=== PATIENT | female | born 1985 | race Hispanic/Latino ===

== ENCOUNTER 2021-02-11 02:10 | Inpatient (IN) | payer OTHER ==
[2021-02-11] MEDS ORDERED: NALOXONE 0.4 MG/1 ML INJ IV PRN (02:19)
[2021-02-11] MEDS ORDERED: LACTATED RINGERS 1,000 ML IV ONE ×3 (02:20→05:35)
--- NOTE | 2021-02-11 02:24 | Emergency Department Report ---
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 Metamyelocytes # K/mm3 Myelocytes # K/mm3 Promyelocytes # K/mm3 Blast Cells # K/mm3 WBC Morphology Hypersegmented Neuts Hyposegmented Neuts Hypogranular Neuts Smudge Cells Toxic Granulation Toxic Vacuolation Dohle Bodies Pelger-Huet Anomaly Can Rods Platelet Estimate Clumped Platelets Plt Clumps, EDTA Large Platelets Giant Platelets Platelet Satelliting Plt Morphology Comment RBC Morphology Dimorphic RBCs Polychromasia Hypochromasia Poikilocytosis Anisocytosis Microcytosis Macrocytosis Spherocytes Pappenheimer Bodies Sickle Cells Target Cells Tear Drop Cells Ovalocytes Helmet Cells Gu[place] Bodies [place] Rings Gely Cells Bite Cells Crenated Cell Elliptocytes Acanthocytes (Spur) Rouleaux Hemoglobin C Crystals Schistocytes Malaria parasites Sacha Bodies Hem Pathologist Commnt APTT (24.2-36.6) Sec. Sodium (137-145) mmol/L Potassium (3.6-5.0) mmol/L Chloride (98-107) mmol/L Carbon Dioxide (22-30) mmol/L Anion Gap mmol/L BUN (7-17) mg/dL Creatinine (0.6-1.2) mg/dL Estimated GFR ml/min BUN/Creatinine Ratio % Glucose (65-100) mg/dL Lactic Acid (0.7-2.0) mmol/L Calcium (8.4-10.2) mg/dL Magnesium (1.7-2.3) mg/dL Total Bilirubin (0.1-1.2) mg/dL AST (5-40) units/L ALT (7-56) units/L Alkaline Phosphatase (35-129) units/L Total Creatine Kinase (30-135) units/L Total Protein (6.3-8.2) g/dL Albumin (3.9-5) g/dL Albumin/Globulin Ratio % HCG, Quant (0-4) mIU/mL Urine Color (Yellow) Urine Turbidity (Clear) Urine pH (5.0-7.0) Ur Specific [place] (1.003-1.030) Urine Protein (Negative) mg/dL Urine Glucose (UA) (Negative) mg/dL Urine Ketones (Negative) mg/dL Urine Blood (Negative) Urine Nitrite (Negative) Urine Bilirubin (Negative) Urine Urobilinogen (<2.0) mg/dL Ur Leukocyte Esterase (Negative) Urine WBC (Auto) (0.0-6.0) /HPF Urine RBC (Auto) (0.0-6.0) /HPF U Epithel Cells (Auto) (0-13.0) /HPF Urine Bacteria (Auto) (Negative) /HPF Urine Mucus /HPF Urine Yeast (Budding) /HPF Salicylates (2.8-20.0) mg/dL Urine Opiates Screen Presumptive negative Urine Methadone Screen Presumptive negative Acetaminophen 5.0 L (10.0-30.0) ug/mL Ur Barbiturates Screen Presumptive negative Ur Phencyclidine Scrn Presumptive negative Ur Amphetamines Screen Presumptive negative U Benzodiazepines Scrn Presumptive negative Urine Cocaine Screen Presumptive positive U Marijuana (THC) Screen Presumptive negative Drugs of Abuse Note Disclamer Plasma/Serum Alcohol 0.02 (0-0.07) % 02/11/21 02/11/21 Range/Units 04:55 Unknown WBC (4.5-11.0) K/mm3 RBC (3.65-5.03) M/mm3 Hgb (10.1-14.3) gm/dl Hct (30.3-42.9) % MCV (79-97) fl MCH (28-32) pg MCHC (30-34) % RDW (13.2-15.2) % Plt Count (140-440) K/mm3 Add Manual Diff Total Counted Seg Neutrophils % Seg Neuts % (Manual) (40.0-70.0) % Band Neutrophils % % Lymphocytes % (Manual) (13.4-35.0) % Monocytes % (Manual) (0.0-7.3) % Nucleated RBC % Seg Neutrophils # Man (1.8-7.7) K/mm3 Band Neutrophils # K/mm3 Lymphocytes # (Manual) (1.2-5.4) K/mm3 Abs React Lymphs (Man) K/mm3 Monocytes # (Manual) (0.0-0.8) K/mm3 Eosinophils # (Manual) (0.0-0.4) K/mm3 Basophils # (Manual) (0.0-0.1) K/mm3 Metamyelocytes # K/mm3 Myelocytes # K/mm3 Promyelocytes # K/mm3 Blast Cells # K/mm3 WBC Morphology Hypersegmented Neuts Hyposegmented Neuts Hypogranular Neuts Smudge Cells Toxic Granulation Toxic Vacuolation Dohle Bodies Pelger-Huet Anomaly Can Rods Platelet Estimate Clumped Platelets Plt Clumps, EDTA Large Platelets Giant Platelets Platelet Satelliting Plt Morphology Comment RBC Morphology Dimorphic RBCs Polychromasia Hypochromasia Poikilocytosis Anisocytosis Microcytosis Macrocytosis Spherocytes Pappenheimer Bodies Sickle Cells Target Cells Tear Drop Cells Ovalocytes Helmet Cells [place] Bodies [place] Rings [place] Cells Bite Cells Crenated Cell Elliptocytes Acanthocytes (Spur) Rouleaux Hemoglobin C Crystals Schistocytes Malaria parasites Sacha Bodies Hem Pathologist Commnt APTT (24.2-36.6) Sec. Sodium (137-145) mmol/L Potassium (3.6-5.0) mmol/L Chloride (98-107) mmol/L Carbon Dioxide (22-30) mmol/L Anion Gap mmol/L BUN (7-17) mg/dL Creatinine (0.6-1.2) mg/dL Estimated GFR ml/min BUN/Creatinine Ratio % Glucose (65-100) mg/dL Lactic Acid 3.30 H* (0.7-2.0) mmol/L Calcium (8.4-10.2) mg/dL Magnesium (1.7-2.3) mg/dL Total Bilirubin (0.1-1.2) mg/dL AST (5-40) units/L ALT (7-56) units/L Alkaline Phosphatase (35-129) units/L Total Creatine Kinase (30-135) units/L Total Protein (6.3-8.2) g/dL Albumin (3.9-5) g/dL Albumin/Globulin Ratio % HCG, Quant (0-4) mIU/mL Urine Color Yellow (Yellow) Urine Turbidity Clear (Clear) Urine pH 6.0 (5.0-7.0) Ur Specific [place] 1.011 (1.003-1.030) Urine Protein 100 mg/dl (Negative) mg/dL Urine Glucose (UA) >=500 (Negative) mg/dL Urine Ketones Neg (Negative) mg/dL Urine Blood Lg (Negative) Urine Nitrite Neg (Negative) Urine Bilirubin Neg (Negative) Urine Urobilinogen < 2.0 (<2.0) mg/dL Ur Leukocyte Esterase Sm (Negative) Urine WBC (Auto) 34.0 H (0.0-6.0) /HPF Urine RBC (Auto) 72.0 (0.0-6.0) /HPF U Epithel Cells (Auto) 2.0 (0-13.0) /HPF Urine Bacteria (Auto) 1+ (Negative) /HPF Urine Mucus Few /HPF Urine Yeast (Budding) Few /HPF Salicylates (2.8-20.0) mg/dL Urine Opiates Screen Urine Methadone Screen Acetaminophen (10.0-30.0) ug/mL Ur Barbiturates Screen Ur Phencyclidine Scrn Ur Amphetamines Screen U Benzodiazepines Scrn Urine Cocaine Screen U Marijuana (THC) Screen Drugs of Abuse Note Plasma/Serum Alcohol (0-0.07) % - EKG Data -: EKG Interpreted by Ak EKG shows normal: sinus rhythm Rate: normal - EKG Data 02/11/21 04:34 Time of interpretation, 3: 50 a.m. Sinus rhythm, tachycardia, 100 bpm. Normal axis, QTC prolonged, poor R wave progression, QRS within normal limits, this is an abnormal EKG, this is not a STEMI. - Radiology Data Radiology results: pending, report reviewed, image reviewed CT HEAD WITHOUT CONTRAST INDICATION / CLINICAL INFORMATION: Overdose / Altered Mental Status. TECHNIQUE: All CT scans at this location are performed using CT dose reduction for [employer] by means of automated exposure control. COMPARISON: None available. FINDINGS: HEMORRHAGE: None. EXTRA-AXIAL SPACES: Normal in size and morphology for the patient's age. VENTRICULAR SYSTEM: Normal in size and morphology for the patient's age. CEREBRAL PARENCHYMA: No significant abnormality. No acute territorial infarct. MIDLINE SHIFT OR HERNIATION: None. CEREBELLUM / BRAINSTEM: No significant abnormality. ORBITS: Normal as visualized. SOFT TISSUES of HEAD: No significant abnormality. CALVARIUM: No significant abnormality. PARANASAL SINUSES / MASTOID AIR CELLS: Normal as visualized. ADDITIONAL FINDINGS: None. IMPRESSION: 1. No acute intracranial abnormality. Signer Name: Charles Martinez MD Signed: 02/11/2021 2:[address] CERVICAL SPINE WITHOUT CONTRAST INDICATION: Overdose / Altered Mental Status. TECHNIQUE: All CT scans at this location are performed using CT dose reduction for ALARA by means of automated exposure control. Axial CT images were obtained through the cervical spine. Sagittal and coronal reformatted images were produced. COMPARISON: None available. FINDINGS: Fracture: None. Sublu xation: None. Spinal canal: No significant compromise. Disc spaces: Normal. Facet joints: Normal. Paraspinal soft tissues: No soft tissue swelling. Normal. Additional findings: Moderate pneumomediastinum with air tracking superiorly into prevertebral soft tissues of neck Lung apices: Normal. IMPRESSION: 1. Moderate amount mediastinum. Findings were cysts discussed with Dr. Ivey. Chest CT is ordered preferably with oral contrast in order to exclude esophageal perforation. 2. No cervical fracture Signer Name: Charles Martinez MD Signed: 02/11/2021 2:42 AM Workstation Name: [email or web address] CHEST 1 VIEW 02/11/2021 1:55 AM INDICATION / CLINICAL INFORMATION: sepsis overdose, hypothermia. COMPARISON: None FINDINGS: SUPPORT DEVICES: None. HEART / MEDIASTINUM: No significant abnormality. LUNGS / PLEURA: No significant pulmonary or pleural abnormality. No pneumothorax. ADDITIONAL FINDINGS: No significant additional findings. IMPRESSION: 1. No acute findings. Signer Name: Charles Martinez MD Signed: 02/11/2021 2:15 AM Workstation Name: [email or web address] CT CHEST WITHOUT CONTRAST INDICATION / CLINICAL INFORMATION: Oral contrast. n/v pneumomediastinum. TECHNIQUE: Axial CT images were obtained through the chest without contrast. All CT scans at this location are performed using CT dose reduction for ALARA by means of automated exposure control. COMPARISON: None available. FINDINGS: Chest CT was performed after oral contrast HEART: No significant abnormality. THORACIC AORTA: No significant abnormality. MEDIASTINUM and RAGINI: Moderate pneumomediastinum. No extravasation of oral contrast to suggest esophageal tear/perforation LUNGS: Multifocal bilateral groundglass/parenchymal disease both upper, right middle and lower lobes characteristic for pneumonia. PLEURA: No significant pleural effusion. Small 1.5 cm right basilar pneumothorax ADDITIONAL FINDINGS: None. UPPER ABDOMEN: No significant abnormality. SKELETAL SYSTEM: No significant abnormality. IMPRESSION: 1. Bilateral bronchopneumonia. 2. Small right basilar pneumothorax 3. Moderate pneumomediastinum with gas tracking into neck Findings discussed with Dr. Ivey at 3:55 AM CDT 02/11/2021 Signer Name: Charles Martinez MD Signed: 02/11/2021 4:00 AM Workstation Name: [email or web address] CT neck wo con INDICATION: Oral contrast. n/v pneumomediastinum. TECHNIQUE: All CT scans at this location are performed using CT dose reduction for ALARA by means of automated exposure control. COMPARISON: Cervical spine CT earlier today FINDINGS: There is a moderate amount of subcutaneous gas tracking into the neck related to the moderate pneumomediastinum. There is no extravasation of oral contrast to suggest tear/perforation of the cervical or upper thoracic esophagus. No abscess or drainable fluid collection IMPRESSION: 1. Moderate pneumomediastinum with gas tracking into prevertebral soft tissues and sup raclavicular regions. 2. No cervical esophageal perforation Signer Name: Charles Martinez MD Signed: 02/11/2021 4:03 AM Workstation Name: [id number] CHEST 1 VIEW 02/11/2021 9:10 PM INDICATION / CLINICAL INFORMATION: follow up pneumonia, ptx, pneumomediastinim. COMPARISON: 02/11/2021 FINDINGS: SUPPORT DEVICES: None. HEART / MEDIASTINUM: Minimally improved pneumomediastinum when compared to prior exam. LUNGS / PLEURA: Persistent mild bibasilar pulmonary opacities, relatively unchanged. No pneumothorax. ADDITIONAL FINDINGS: No significant additional findings. IMPRESSION: 1. Minimally improved pneumomediastinum. 2. Persistent bibasilar opacities, relatively unchanged since prior exam. Signer Name: Kevin Turner MD Signed: 02/11/2021 8:35 PM Workstation Name: [id number] Critical Care Time: Yes Critical care time in (mins) excluding proc time.: 120 Critical care attestation.: If time is entered above; I have spent that time in minutes in the direct care of this critically ill patient, excluding procedure time. ED Disposition Clinical Impression: SIRS (systemic inflammatory response syndrome), Overdose, Hypothermia, Acute encephalopathy, Narcotic abuse, Coffee ground emesis, Pneumomediastinum, Bronchopneumonia, Pneumothorax on right Disposition: 09 OP ADMIT IP TO THIS HOSP Is pt being admited?: Yes Does the pt Need Aspirin: No Condition: Good Instructions: Chronic Bronchitis (ED) Additional Instructions: Professional and Agency Contacts To help [facility] Crises(14/06) [place] Crisis Line: Suicide Prevention Line: Crisis Text Line: Text START to [phone] Emergency: 911 Outpatient COMMUNITY Behavioral Health Resources: DEKALB: [facility] [address] [place], [place] [address] [place] [address] NUZHAT: [facility] - [address] [place] [address] Wednesday thru Wednesday - 8am - 5pm ISAMARBrain: [facility] Address: [address], [place] [address] FRANCO: [facility] Address: [address] [place] [address] Wednesday thru Wednesday- 7am-2pm [facility] Address: [address] [place] [address] Wednesday thru Wednesday: 8:30AM-5PM In case of an emergency, please contact the following numbers: [place] Crisis and Access Line: Number: Crisis Text Line: (Text START) Number: 656948 w Suicide Prevention Line: Number: Emergency Number: 911 SUBSTANCE ABUSE PROGRAMS: [facility]: Location: [place], [place] [facility] Address: [address] [place] [address] [facility] Address: [address] [place] [address] [facility]: Address: [address] [place] [address] [facility] Community: Address: [address] [place] [address] [facility] Address: [address] [place] [address]. Please contact above numbers to attempt placement into free based program. Medicaid Programs: [facility]: Address: [address] [place] [address] [facility]: Address: [address] [place] [id number] Referrals: PRIMARY CAREMD [Primary Care Provider] - 3-5 Days
[2021-02-11] MEDS ORDERED: cefTRIAXone/NS 1 GM/50 ML 1 GM/50 ML BAG IV ONE (03:00)
[2021-02-11 03:04] LABS: Hematocrit 41.1 % (30.3-42.9); Hemoglobin 13.7 gm/dl (10.1-14.3); Mean Corpuscular HGB Conc 33 % (30-34); Mean Corpuscular Volume 90 fl (79-97); Platelet Count 332 K/mm3 (140-440); Red Blood Count 4.59 M/mm3 (3.65-5.03)
[2021-02-11 03:20] LABS: Alanine Aminotransferase 43 units/L (7-56); Albumin 4.1 g/dL (3.9-5); BUN/Creatinine Ratio 8; Blood Urea Nitrogen 9 mg/dL (7-17); Calcium 8.4 mg/dL (8.4-10.2); Hemolysis Index 8
--- NOTE | 2021-02-11 03:20 | XRay Report ---
CHEST 1 VIEW 02/11/2021 1:55 AM INDICATION / CLINICAL INFORMATION: sepsis overdose, hypothermia. COMPARISON: None FINDINGS: SUPPORT DEVICES: None. HEART / MEDIASTINUM: No significant abnormality. LUNGS / PLEURA: No significant pulmonary or pleural abnormality. No pneumothorax. ADDITIONAL FINDINGS: No significant additional findings. IMPRESSION: 1. No acute findings. Signer Name: Charles Martinez MD Signed: 02/11/2021 3:15 AM Workstation Name: [id number]
[2021-02-11] MEDS ORDERED: PANTOPRAZOLE 40 MG INJ IV ONE (03:38)
[2021-02-11] MEDS ORDERED: METOCLOPRAMIDE 10 MG/2 ML INJ IV ONE (03:38)
--- NOTE | 2021-02-11 03:44 | Cat Scan Report ---
CT HEAD WITHOUT CONTRAST INDICATION / CLINICAL INFORMATION: Overdose / Altered Mental Status. TECHNIQUE: All CT scans at this location are performed using CT dose reduction for ALARA by means of automated e xposure control. COMPARISON: None available. FINDINGS: HEMORRHAGE: None. EXTRA-AXIAL SPACES: Normal in size and morphology for the patient's age. VENTRICULAR SYSTEM: Normal in size and morphology for the patient's age. CEREBRAL PARENCHYMA: No significant abnormality. No acute territorial infarct. MIDLINE SHIFT OR HERNIATION: None. CEREBELLUM / BRAINSTEM: No significant abnormality. ORBITS: Normal as visualized. SOFT TISSUES of HEAD: No significant abnormality. CALVARIUM: No significant abnormality. PARANASAL SINUSES / MASTOID AIR CELLS: Normal as visualized. ADDITIONAL FINDINGS: None. IMPRESSION: 1. No acute intracranial abnormality. Signer Name: Charles Martinez MD Signed: 02/11/2021 3:40 AM Workstation Name: [id number]
--- NOTE | 2021-02-11 03:47 | Cat Scan Report ---
CT CERVICAL SPINE WITHOUT CONTRAST INDICATION: Overdose / Altered Mental Status. TECHNIQUE: All CT scans at this location are performed using CT dose reduction for ALARA by means of automated e xposure control. Axial CT images were obtained through the cervical spine. Sagittal and coronal reformatted images we re produced. COMPARISON: None available. FINDINGS: Fracture: None. Subluxation: None. Spinal canal: No significant compromise. Disc spaces: Normal. Facet joints: Normal. Paraspinal soft tissues: No soft tissue swelling. Normal. Additional findings: Moderate pneumomediastinum with air tracking superiorly into prevertebral soft t issues of neck Lung apices: Normal. IMPRESSION: 1. Moderate amount mediastinum. Findings were cysts discussed with Dr. Ivey. Chest CT is ordered preferably with oral contrast in order to exclude esophageal perforation. 2. No cervical fracture Signer Name: Charles Martinez MD Signed: 02/11/2021 3:42 AM Workstation Name: [id number]
[2021-02-11 03:51] LABS: Total Cells Counted 100
[2021-02-11 03:52] LABS: Platelet Estimate Cons; Schistocytes Rare
[2021-02-11] MEDS ORDERED: PIPERACIL/TAZOBACTA 4.5/NS 100 4.5 GM/100 ML VIAL IV ONE ×2 (04:30→21:13)
[2021-02-11 04:58] LABS: Bacteria,Urine 1+ /HPF (Negative); Bilirubin,Urine NEG (Negative); Blood,Urine LG (Negative); Color,Urine Yellow (Yellow); Mucus,Urine FEW /HPF; Urobilinogen,Urine < 2.0 mg/dL (<2.0)
[2021-02-11 05:01] LABS: Amphetamine Screen,Urine PRESUMPTIVE NEGATIVE; Benzodiazepines Screen,Urine PRESUMPTIVE NEGATIVE; Cannabinoid Screen,Urine PRESUMPTIVE NEGATIVE; Cocaine Screen,Urine PRESUMPTIVE POSITIVE; Methadone Screen,Urine PRESUMPTIVE NEGATIVE; Opiate Screen,Urine PRESUMPTIVE NEGATIVE
[2021-02-11] MEDS: PANTOPRAZOLE 80 MG in SODIUM CHLORIDE 0.9% 100 ML IV SCH ×2 (05:03→13:13)
[2021-02-11] MEDS: LACTATED RINGERS 1,100 ML IV ONE ×2 (05:03→05:33)
--- NOTE | 2021-02-11 05:04 | Cat Scan Report ---
CT CHEST WITHOUT CONTRAST INDICATION / CLINICAL INFORMATION: Oral contrast. n/v pneumomediastinum. TECHNIQUE: Axial CT images were obtained through the chest without contrast. All CT scans at this location are p erformed using CT dose reduction for ALARA by means of automated exposure control. COMPARISON: None available. FINDINGS: Chest CT was performed after oral contrast HEART: No significant abnormality. THORACIC AORTA: No significant abnormality. MEDIASTINUM and RAGINI: Moderate pneumomediastinum. No extravasation of oral contrast to suggest esopha geal tear/perforation LUNGS: Multifocal bilateral groundglass/parenchymal disease both upper, right middle and lower lobes characteristic for pneumonia. PLEURA: No significant pleural effusion. Small 1.5 cm right basilar pneumothorax ADDITIONAL FINDINGS: None. UPPER ABDOMEN: No significant abnormality. SKELETAL SYSTEM: No significant abnormality. IMPRESSION: 1. Bilateral bronchopneumonia. 2. Small right basilar pneumothorax 3. Moderate pneumomediastinum with gas tracking into neck Findings discussed with Dr. Ivey at 3:55 AM CDT 02/11/2021 Signer Name: Charles Martinez MD Signed: 02/11/2021 5:00 AM Workstation Name: [id number]
--- NOTE | 2021-02-11 05:07 | Cat Scan Report ---
CT neck wo con INDICATION: Oral contrast. n/v pneumomediastinum. TECHNIQUE: All CT scans at this location are performed using CT dose reduction for ALARA by means of automated e xposure control. COMPARISON: Cervical spine CT earlier today FINDINGS: There is a moderate amount of subcutaneous gas tracking into the neck related to the moderate pneumom ediastinum. There is no extravasation of oral contrast to suggest tear/perforation of the cervical or upper thoracic esophagus. No abscess or drainable fluid collection IMPRESSION: 1. Moderate pneumomediastinum with gas tracking into prevertebral soft tissues and supraclavicular re gions. 2. No cervical esophageal perforation Signer Name: Charles Martinez MD Signed: 02/11/2021 5:03 AM Workstation Name: [id number]
[2021-02-11] MEDS ORDERED: ONDANSETRON 4 MG/2 ML INJ IV PRN (06:38)
[2021-02-11] MEDS: D5W/0.45% NACL 1,000 ML IV SCH ×3 (07:10→22:18)
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
[2021-02-11 18:17] LABS: Hematocrit 33.3 % (30.3-42.9); Hemoglobin 11.5 gm/dl (10.1-14.3); Mean Corpuscular HGB Conc 34 % (30-34); Mean Corpuscular Volume 87 fl (79-97); Platelet Count 228 K/mm3 (140-440); Red Blood Count 3.82 M/mm3 (3.65-5.03); Red Cell Distribution Width 13.4 % (13.2-15.2)
[2021-02-11 18:38] LABS: Albumin 3.2 g/dL (3.9-5); Blood Urea Nitrogen 7 mg/dL (7-17); Calcium 7.9 mg/dL (8.4-10.2); Hemolysis Index 4
[2021-02-11 18:43] LABS: BUN/Creatinine Ratio 10
[2021-02-11 18:55] LABS: Alanine Aminotransferase 28 units/L (7-56)
--- NOTE | 2021-02-11 21:39 | XRay Report ---
CHEST 1 VIEW 02/11/2021 9:10 PM INDICATION / CLINICAL INFORMATION: follow up pneumonia, ptx, pneumomediastinim. COMPARISON: 02/11/2021 FINDINGS: SUPPORT DEVICES: None. HEART / MEDIASTINUM: Minimally improved pneumomediastinum when compared to prior exam. LUNGS / PLEURA: Persistent mild bibasilar pulmonary opacities, relatively unchanged. No pneumothorax. ADDITIONAL FINDINGS: No significant additional findings. IMPRESSION: 1. Minimally improved pneumomediastinum. 2. Persistent bibasilar opacities, relatively unchanged since prior exam. Signer Name: Kevin Turner MD Signed: 02/11/2021 9:35 PM Workstation Name: [id number]
[2021-02-11] MEDS ORDERED: ACETAMINOPHEN 325 MG TAB PO PRN (22:27)
[2021-02-11] MEDS: AZITHROMYCIN/NS 500 MG/250 ML 500 MG/250 ML BAG IV SCH (23:50)
[2021-02-11] MEDS: SODIUM CHLORIDE 0.9% 1000 ML 1,000 ML IV SCH (23:51)
[2021-02-12] MEDS: PANTOPRAZOLE 80 MG in SODIUM CHLORIDE 0.9% 100 ML IV SCH (00:22)
--- NOTE | 2021-02-12 05:09 | History and Physical Report ---
History of Present Illness Date of examination: 02/11/21 Date of admission: 02/11/21 21:53 Chief complaint: Altered Mental Status History of present illness: History of presenting illness, patient is a 53-year-old female brought to the emergency room because of altered mental status, patient was suspected to have taking overdose of narcotic and EMS was called and patient was given Narcan. There was no history of fever or chills, no history of chest pain or shortness of breath, there was also no history of nausea or vomiting patient was evaluated and found to have pneumoperitoneum, pneumothorax on the right side of the lungs and arrangement was made to transfer patient out to where there is a cardiothoracic surgeon but later there was consultation with the [place] cardiolthoracic surgeon DR. vila who advised the ED doctor to keep patient in this hospital and treat the case of Pneumonia and observe patient for the pneumoperitoneum . Past History Past Surgical History: No surgical history Family history: no significant family history Medications and Allergies Allergies Allergy/AdvReac Type Severity Reaction Status Date / Time No Known Allergies Allergy Unverified 02/11/21 04:07 Home Medications Medication Instructions Recorded Confirmed Last Taken Type No Known Home Medications [No 02/11/21 02/11/21 Unknown History Reported Home Medications] Active Meds: Active Medications Acetaminophen (Acetaminophen 325 Mg Tab) 650 mg PO Q4H PRN PRN Reason: Fever >101 Pantoprazole Sodium 80 mg/ (Sodium Chloride) 100 mls @ 10 mls/hr IV DIRECT OLIVIA Last Admin: 02/12/21 00:22 Dose: 8 mg/hr, 10 mls/hr Documented by: Piperacillin Sod/Tazobactam Sod (Zosyn/Ns 3.375gm/50ml) 3.375 gm in 50 mls @ 100 mls/hr IV Q8H OLIVIA; Protocol Azithromycin (Zithromax/Ns) 500 mg in 250 mls @ 250 mls/hr IV Q24HR OLIVIA Last Admin: 02/11/21 23:50 Dose: 250 mls/hr Documented by: Sodium Chloride (Nacl 0.9% 1000 Ml) 1,000 mls @ 125 mls/hr IV DIRECT OLIVIA Last Admin: 02/11/21 23:51 Dose: 125 mls/hr Documented by: Naloxone HCl (Naloxone 0.4 Mg/1 Ml Inj) 0.1 mg IV Q2MIN PRN PRN Reason: Res Rate </= 8 or 02 SAT < 92% Ondansetron HCl (Ondansetron 4 Mg/2 Ml Inj) 4 mg IV Q6HR PRN PRN Reason: Nausea Last Admin: 02/11/21 07:10 Dose: 4 mg Documented by: Review of Systems Constitutional: weakness, no weight gain, no fever, no chills, no fatigue, no malaise Eyes: bilateral: other (NO BILATERAL EYE SYMPTOM) Ears, nose, mouth and throat: no ear pain Breasts: deferred Cardiovascular: no chest pain, no orthopnea, no palpitations, no rapid/irregular heart beat, no edema, no syncope, no lightheadedness, no shortness of breath Respiratory: no cough, no cough with sputum, no excessive sputum, no shortness of breath, no congestion, no wheezing Gastrointestinal: coffee ground emesis, no abdominal pain, no nausea, no vomiting, no diarrhea, no constipation Rectal: no pain Integumentary: no rash, no pruritis, no redness Neurological: weakness, no parathesias, no numbness, no tingling, no seizures, no syncope, no tremors, no vertigo, no headaches Psychiatric: no anxiety, no depression Endocrine: no polydipsia, no polyuria, no nocturia, no palpatations Hematologic/Lymphatic: no easy bruising, no easy bleeding Exam - Constitutional Vitals: Temp Pulse Resp BP Pulse Ox 98.8 F 87 13 96/54 92 02/11/21 17:50 02/12/21 04:01 02/12/21 04:01 02/12/21 04:01 02/12/21 02:31 General appearance: Present: no acute distress - EENT Eyes: Present: PERRL, EOM intact ENT: hearing intact, clear oral mucosa - Neck Neck: Present: supple - Respiratory Respiratory effort: normal - Cardiovascular Rhythm: regular Heart Sounds: Present: S1 & S2. Absent: gallop, systolic murmur, diastolic murmur - Extremities Extremities: no ischemia, No edema Peripheral Pulses: within normal limits - Abdominal General gastrointestinal: Present: soft, non-tender, non-distended. Absent: tender, distended, rigid, hepatomegaly, splenomegaly Female genitourinary: Present: deferred - Rectal Rectal Exam: deferred - Integumentary Integumentary: Present: clear, warm, dry. Absent: jaundice - Musculoskeletal Musculoskeletal: generalized weakness - Psychiatric Psychiatric: appropriate mood/affect HEART Score - HEART Score Risk factors: 1-2 risk factors Troponin: < normal limit - Critical Actions Critical Actions: 0-3 pts:0.9-1.7%risk of adverse cardiac event.Candidate for discharge Results - Labs CBC & Chem 7: 02/11/21 18:03 02/11/21 18:03 Labs: Laboratory Last Values WBC 15.8 K/mm3 (4.5-11.0) H 02/11/21 18:03 RBC 3.82 M/mm3 (3.65-5.03) 02/11/21 18:03 Hgb 11.5 gm/dl (10.1-14.3) 02/11/21 18:03 Hct 33.3 % (30.3-42.9) D 02/11/21 18:03 MCV 87 fl (79-97) 02/11/21 18:03 MCH 30 pg (28-32) 02/11/21 18:03 MCHC 34 % (30-34) 02/11/21 18:03 RDW 13.4 % (13.2-15.2) 02/11/21 18:03 Plt Count 228 K/mm3 (140-440) 02/11/21 18:03 Add Manual Diff Complete 02/11/21 02:39 Total Counted 100 02/11/21 02:39 Seg Neutrophils % Chainstitch Felled Seam Operator 02/11/21 02:39 Seg Neuts % (Manual) 86.0 % (40.0-70.0) H 02/11/21 02:39 Band Neutrophils % 4.0 % 02/11/21 02:39 Lymphocytes % (Manual) 9.0 % (13.4-35.0) L 02/11/21 02:39 Monocytes % (Manual) 1.0 % (0.0-7.3) 02/11/21 02:39 Nucleated RBC % Not Reportable 02/11/21 02:39 Seg Neutrophils # Man 21.3 K/mm3 (1.8-7.7) H 02/11/21 02:39 Band Neutrophils # 1.0 K/mm3 02/11/21 02:39 Lymphocytes # (Manual) 2.2 K/mm3 (1.2-5.4) 02/11/21 02:39 Abs React Lymphs (Man) 0.0 K/mm3 02/11/21 02:39 Monocytes # (Manual) 0.2 K/mm3 (0.0-0.8) 02/11/21 02:39 Eosinophils # (Manual) 0.0 K/mm3 (0.0-0.4) 02/11/21 02:39 Basophils # (Manual) 0.0 K/mm3 (0.0-0.1) 02/11/21 02:39 Metamyelocytes # 0.0 K/mm3 02/11/21 02:39 Myelocytes # 0.0 K/mm3 02/11/21 02:39 Promyelocytes # 0.0 K/mm3 02/11/21 02:39 Blast Cells # 0.0 K/mm3 02/11/21 02:39 WBC Morphology Not Reportable 02/11/21 02:39 Hypersegmented Neuts Not Reportable 02/11/21 02:39 Hyposegmented Neuts Not Reportable 02/11/21 02:39 Hypogranular Neuts Not Reportable 02/11/21 02:39 Smudge Cells Not Reportable 02/11/21 02:39 Toxic Granulation Not Reportable 02/11/21 02:39 Toxic Vacuolation Not Reportable 02/11/21 02:39 Dohle Bodies Not Reportable 02/11/21 02:39 Pelger-Huet Anomaly Not Reportable 02/11/21 02:39 Can Rods Not Reportable 02/11/21 02:39 Platelet Estimate Cons 02/11/21 02:39 Clumped Platelets Not Reportable 02/11/21 02:39 Plt Clumps, EDTA Not Reportable 02/11/21 02:39 Large Platelets Not Reportable 02/11/21 02:39 Giant Platelets Not Reportable 02/11/21 02:39 Platelet Satelliting Not Reportable 02/11/21 02:39 Plt Morphology Comment Not Reportable 02/11/21 02:39 RBC Morphology Not Reportable 02/11/21 02:39 Dimorphic RBCs Not Reportable 02/11/21 02:39 Polychromasia Not Reportable 02/11/21 02:39 Hypochromasia Not Reportable 02/11/21 02:39 Poikilocytosis Not Reportable 02/11/21 02:39 Anisocytosis Not Reportable 02/11/21 02:39 Microcytosis Not Reportable 02/11/21 02:39 Macrocytosis Not Reportable 02/11/21 02:39 Spherocytes Not Reportable 02/11/21 02:39 Pappenheimer Bodies Not Reportable 02/11/21 02:39 Sickle Cells Not Reportable 02/11/21 02:39 Target Cells Not Reportable 02/11/21 02:39 Tear Drop Cells Not Reportable 02/11/21 02:39 Ovalocytes Not Reportable 02/11/21 02:39 Helmet Cells Not Reportable 02/11/21 02:39 [place] Bodies Not Reportable 02/11/21 02:39 [place] Rings Not Reportable 02/11/21 02:39 [place] Cells Not Reportable 02/11/21 02:39 Bite Cells Not Reportable 02/11/21 02:39 Crenated Cell Not Reportable 02/11/21 02:39 Elliptocytes Not Reportable 02/11/21 02:39 Acanthocytes (Spur) Not Reportable 02/11/21 02:39 Rouleaux Not Reportable 02/11/21 02:39 Hemoglobin C Crystals Not Reportable 02/11/21 02:39 Schistocytes Rare 02/11/21 02:39 Malaria parasites Not Reportable 02/11/21 02:39 Sacha Bodies Not Reportable 02/11/21 02:39 Hem Pathologist Commnt No 02/11/21 02:39 APTT 28.0 Sec. (24.2-36.6) 02/11/21 02:39 ABG pH 7.358 (7.320-7.450) 02/11/21 06:35 POC ABG pCO2 40.5 mmHg (32.0-48.0) 02/11/21 06:35 POC ABG pO2 136.7 mmHg (83-108) H 02/11/21 06:35 POC ABG HCO3 22.3 02/11/21 06:35 ABG O2 Saturation 98.7 (0-100) 02/11/21 06:35 POC ABG Base Excess -3 02/11/21 06:35 ABG Hemoglobin 11.5 (12.0-17.5) L 02/11/21 06:35 ABG Oxyhemoglobin 98.2 (94-98) H 02/11/21 06:35 ABG Methemoglobin 0.3 (0.0-1.5) 02/11/21 06:35 ABG Sodium 137.1 mmol/L (136.0-145.0) 02/11/21 06:35 ABG Potassium 3.7 mmol/L (3.40-4.50) 02/11/21 06:35 ABG Chloride 107.0 mmol/L (98-107) 02/11/21 06:35 ABG Glucose 68 mg/dL (65-95) 02/11/21 06:35 Carboxyhemoglobin 0.2 (0.5-1.5) L 02/11/21 06:35 FiO2 % 100 02/11/21 06:35 Sodium 134 mmol/L (137-145) L 02/11/21 18:03 Potassium 4.1 mmol/L (3.6-5.0) 02/11/21 18:03 Chloride 104.4 mmol/L (98-107) 02/11/21 18:03 Carbon Dioxide 23 mmol/L (22-30) 02/11/21 18:03 Anion Gap 11 mmol/L 02/11/21 18:03 BUN 7 mg/dL (7-17) 02/11/21 18:03 Creatinine 0.7 mg/dL (0.6-1.2) 02/11/21 18:03 Estimated GFR > 60 ml/min 02/11/21 18:03 BUN/Creatinine Ratio 10 % 02/11/21 18:03 Glucose 103 mg/dL (65-100) H 02/11/21 18:03 Lactic Acid 1.30 mmol/L (0.7-2.0) 02/11/21 18:03 Calcium 7.9 mg/dL (8.4-10.2) L 02/11/21 18:03 Magnesium 2.30 mg/dL (1.7-2.3) 02/11/21 02:39 Total Bilirubin 0.30 mg/dL (0.1-1.2) 02/11/21 18:03 AST 29 units/L (5-40) 02/11/21 18:03 ALT 28 units/L (7-56) 02/11/21 18:03 Alkaline Phosphatase 43 units/L (35-129) 02/11/21 18:03 Total Creatine Kinase 185 units/L (30-135) H 02/11/21 02:39 Total Protein 5.5 g/dL (6.3-8.2) L D 02/11/21 18:03 Albumin 3.2 g/dL (3.9-5) L 02/11/21 18:03 Albumin/Globulin Ratio 1.4 % 02/11/21 18:03 HCG, Quant < 2 mIU/mL (0-4) 02/11/21 02:39 Arterial Blood Glucose 68 mg/dL (65-95) 02/11/21 06:35 Arterial Blood Ionized Calcium 4.5 mg/dL (4.6-5.3) L 02/11/21 06:35 Urine Color Yellow (Yellow) 02/11/21 Unknown Urine Turbidity Clear (Clear) 02/11/21 Unknown Urine pH 6.0 (5.0-7.0) 02/11/21 Unknown Ur Specific [place] 1.011 (1.003-1.030) 02/11/21 Unknown Urine Protein 100 mg/dl mg/dL (Negative) 02/11/21 Unknown Urine Glucose (UA) >=500 mg/dL (Negative) 02/11/21 Unknown Urine Ketones Neg mg/dL (Negative) 02/11/21 Unknown Urine Blood Lg (Negative) 02/11/21 Unknown Urine Nitrite Neg (Negative) 02/11/21 Unknown Urine Bilirubin Neg (Negative) 02/11/21 Unknown Urine Urobilinogen < 2.0 mg/dL (<2.0) 02/11/21 Unknown Ur Leukocyte Esterase Sm (Negative) 02/11/21 Unknown Urine WBC (Auto) 34.0 /HPF (0.0-6.0) H 02/11/21 Unknown Urine RBC (Auto) 72.0 /HPF (0.0-6.0) 02/11/21 Unknown U Epithel Cells (Auto) 2.0 /HPF (0-13.0) 02/11/21 Unknown Urine Bacteria (Auto) 1+ /HPF (Negative) 02/11/21 Unknown Urine Mucus Few /HPF 02/11/21 Unknown Urine Yeast (Budding) Few /HPF 02/11/21 Unknown Salicylates < 0.3 mg/dL (2.8-20.0) L 02/11/21 02:39 Urine Opiates Screen Presumptive negative 02/11/21 04:17 Urine Methadone Screen Presumptive negative 02/11/21 04:17 Acetaminophen 5.0 ug/mL (10.0-30.0) L 02/11/21 02:39 Ur Barbiturates Screen Presumptive negative 02/11/21 04:17 Ur Phencyclidine Scrn Presumptive negative 02/11/21 04:17 Ur Amphetamines Screen Presumptive negative 02/11/21 04:17 U Benzodiazepines Scrn Presumptive negative 02/11/21 04:17 Urine Cocaine Screen Presumptive positive 02/11/21 04:17 U Marijuana (THC) Screen Presumptive negative 02/11/21 04:17 Drugs of Abuse Note Disclamer 02/11/21 04:17 Plasma/Serum Alcohol 0.02 % (0-0.07) 02/11/21 02:39 Microbiology: Microbiology 02/11/21 02:39 Peripheral/Venous Blood Culture - Preliminary NO GROWTH AFTER 24 HOURS 02/11/21 02:32 Peripheral/Venous Blood Culture - Preliminary NO GROWTH AFTER 24 HOURS Assessment and Plan - Patient Problems (1) Acute encephalopathy Current Visit: Yes Status: Acute Plan to address problem: OXYGEN BY NASAL CANNULA (2) Overdose Current Visit: Yes Status: Acute Plan to address problem: 1. 1.V NORMAL SALINE 2. COUNSELING ON DRUG OVERDOSE (3) Pneumomediastinum Current Visit: Yes Status: Acute Plan to address problem: 1. PULMONARY CONSULT 2. OXYGEN BY NASAL CANNULA (4) Pneumothorax on right Current Visit: Yes Status: Acute Plan to address problem: 1. PULMONARY CONSULT 2. OXYGEN BY NASAL CANNULA (5) Bronchopneumonia Current Visit: Yes Status: Acute Plan to address problem: 1. I.V ZOSYN ANTIBIOTIC 2. I.V ZITHROMAX ANTIBIOTIC 3. TYLENOL PO FOR FEVER (6) Coffee ground emesis Current Visit: Yes Status: Acute Plan to address problem: 1. I.V ZOFRAN FOR NAUSEA AND VOMITING 2. HEMOGLOBIN AND HEMATOCRIT Q6 HOURS 3. G.I CONSULT. 4. I.V PROTONIX Q12H
[2021-02-12] MEDS: PIPERACILLIN/TAZOBACTAM 3.375 3.375 GM/50 ML BAG IV SCH ×3 (05:41→22:53)
[2021-02-12 06:13] LABS: Hematocrit 32.8 % (30.3-42.9); Hemoglobin 11.5 gm/dl (10.1-14.3)
[2021-02-12] MEDS: AZITHROMYCIN/NS 500 MG/250 ML 500 MG/250 ML BAG IV SCH (10:35)
--- NOTE | 2021-02-12 10:47 | Gastroenterology Consultation ---
History of Present Illness - Reason for Consult Consult date: 02/12/21 Pneumomediastinum Requesting physician: MIKAYLA NORIEGA - History of Present Illness The patient is a 35 yo female brought to the ER for narcotic OD (found in hotel room). She was noted, in the workup, to have pneumomediastinum, but was asymptomatic. A CT imaging was done with oral contrast, that showed no persistent leak. The patient is afebrile without N/V/abdominal pain at present (was vomiting in hotel by report). She has a normal WBC. She denies prior upper endoscopy or swallowing difficulty. She tolerated a solid food diet this AM without event. She denies CP or SOB, and there is no gross pneumothorax. Past History Past Medical History: No medical history Past Surgical History: No surgical history Social history: smoking, other (narcotic abuse) Family history: no significant family history Medications and Allergies Allergies Allergy/AdvReac Type Severity Reaction Status Date / Time No Known Allergies Allergy Unverified 02/11/21 04:07 Home Medications Medication Instructions Recorded Confirmed Last Taken Type No Known Home Medications [No 02/11/21 02/11/21 Unknown History Reported Home Medications] Active Meds: Active Medications Acetaminophen (Acetaminophen 325 Mg Tab) 650 mg PO Q4H PRN PRN Reason: Fever >101 Piperacillin Sod/Tazobactam Sod (Zosyn/Ns 3.375gm/50ml) 3.375 gm in 50 mls @ 100 mls/hr IV Q8H OLIVIA; Protocol Last Admin: 02/12/21 05:41 Dose: 100 mls/hr Documented by: Azithromycin (Zithromax/Ns) 500 mg in 250 mls @ 250 mls/hr IV Q24HR OLIVIA Last Admin: 02/12/21 10:35 Dose: 250 mls/hr Documented by: Sodium Chloride (Nacl 0.9% 1000 Ml) 1,000 mls @ 125 mls/hr IV DIRECT OLIVIA Last Admin: 02/11/21 23:51 Dose: 125 mls/hr Documented by: Naloxone HCl (Naloxone 0.4 Mg/1 Ml Inj) 0.1 mg IV Q2MIN PRN PRN Reason: Res Rate </= 8 or 02 SAT < 92% Ondansetron HCl (Ondansetron 4 Mg/2 Ml Inj) 4 mg IV Q6HR PRN PRN Reason: Nausea Last Admin: 02/11/21 07:10 Dose: 4 mg Documented by: Pantoprazole Sodium (Pantoprazole 40 Mg Inj) 40 mg IV BID OLIVIA I HAVE REVIEWED/RECONCILED HOME MEDS Review of Systems - Review of Systems All systems: negative (as noted in the HPI) Exam - Constitutional Vital Signs: Temp Pulse Resp BP Pulse Ox 98.8 F 81 14 115/69 93 02/11/21 17:50 02/12/21 09:15 02/12/21 09:15 02/12/21 09:15 02/12/21 09:15 General appearance: no acute distress - EENT Eyes: PERRL, EOM intact ENT: hearing intact, clear oral mucosa, no thrush - Neck Neck: supple, normal ROM, other (No crepitus) - Respiratory Respiratory effort: normal Respiratory: bilateral: CTA - Cardiovascular Rhythm: regular Heart Sounds: Present: S1 & S2 Extremities: no ischemia, No edema - Gastrointestinal General gastrointestinal: Present: soft, non-tender, non-distended - Integumentary Integumentary: Present: clear, warm, dry - Neurologic Neurological: alert and oriented x3 - Labs CBC & Chem 7: 02/12/21 05:52 02/11/21 18:03 Lab Results: Laboratory Results - last 24 hr 02/11/21 02/11/21 02/11/21 06:35 18:03 18:03 WBC 15.8 H RBC 3.82 Hgb 11.5 Hct 33.3 D MCV 87 MCH 30 MCHC 34 RDW 13.4 Plt Count 228 ABG pH 7.358 POC ABG pCO2 40.5 POC ABG pO2 136.7 H POC ABG HCO3 22.3 ABG O2 Saturation 98.7 POC ABG Base Excess -3 ABG Hemoglobin 11.5 L ABG Oxyhemoglobin 98.2 H ABG Methemoglobin 0.3 ABG Sodium 137.1 ABG Potassium 3.7 ABG Chloride 107.0 ABG Glucose 68 Carboxyhemoglobin 0.2 L FiO2 % 100 Sodium 134 L Potassium 4.1 Chloride 104.4 Carbon Dioxide 23 Anion Gap 11 BUN 7 Creatinine 0.7 Estimated GFR > 60 BUN/Creatinine Ratio 10 Glucose 103 H Lactic Acid Calcium 7.9 L Total Bilirubin 0.30 AST 29 ALT 28 Alkaline Phosphatase 43 Total Protein 5.5 L D Albumin 3.2 L Albumin/Globulin Ratio 1.4 Arterial Blood Glucose 68 Arterial Blood Ionized Calcium 4.5 L 02/11/21 02/12/21 18:03 05:52 WBC RBC Hgb 11.5 Hct 32.8 MCV MCH MCHC RDW Plt Count ABG pH POC ABG pCO2 POC ABG pO2 POC ABG HCO3 ABG O2 Saturation POC ABG Base Excess ABG Hemoglobin ABG Oxyhemoglobin ABG Methemoglobin ABG Sodium ABG Potassium ABG Chloride ABG Glucose Carboxyhemoglobin FiO2 % Sodium Potassium Chloride Carbon Dioxide Anion Gap BUN Creatinine Estimated GFR BUN/Creatinine Ratio Glucose Lactic Acid 1.30 Calcium Total Bilirubin AST ALT Alkaline Phosphatase Total Protein Albumin Albumin/Globulin Ratio Arterial Blood Glucose Arterial Blood Ionized Calcium Assessment and Plan - Patient Problems (1) Pneumomediastinum Current Visit: Yes Status: Acute Plan to address problem: - Given the narcotic overdose and recent vomiting, the patient likely had a small microscopic perforation of the esophagus that appears to have healed. CXray today already shows improvement, vitals/labs are OK, and there is no crepitus on exam. - I would continue antibiotics for 48hours, and regular diet since she is asymptomatic. - If chest pain/severe SOB, repeat imaging with CT; otherwise this can be followed by daily chest xray. - If she is stable tomorrow, with continued improvement, then discharge may be possible. I would continue antibiotics PO for at least 5 days (total). - Continue daily protonix, and be very aggressive with antiemetics to prevent further emesis.
--- NOTE | 2021-02-12 11:27 | Progress Note ---
Assessment and Plan Assessment and plan: -- Acute metabolic encephalopathy; POA Current Visit: Yes Status: Acute Plan to address problem: Present on admission, now resolved Patient is alert awake oriented x3 Continue supportive care --Possible overdose Current Visit: Yes Status: Acute Plan to address problem: Supportive care Drug screen positive for cocaine --Pneumomediastinum Current Visit: Yes Status: Acute Plan to address problem: On CT chest/chest x-ray Surgery and pulmonary evaluated Continue supportive care --Very small pneumothorax on right Current Visit: Yes Status: Acute Plan to address problem: Slightly improved, continue nasal cannula oxygen Titrate O2 sats to more than 90% Pulmonary evaluated supportive care --Bronchopneumonia Current Visit: Yes Status: Acute Plan to address problem: Continue empiric antibiotics Follow cultures --Coffee ground emesis; POA Current Visit: Yes Status: Acute Plan to address problem: Closely monitor H&H IV Protonix, GI evaluated the patient Closely monitor adjust the management as needed. 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 The event continue to monitor , if patient is stable Will consider to downgrade the patient to telemetry. History Interval history: I have seen and the patient in ER awaiting [facility] bed assignment Patient feels slightly better denies any chest pain or shortness of breath Vital signs noted Patient is alert awake oriented x3 not in acute distress Hospitalist Physical - Constitutional Vitals: Temp Pulse Resp BP Pulse Ox 98.8 F 81 14 115/69 93 02/11/21 17:50 02/12/21 09:15 02/12/21 09:15 02/12/21 09:15 02/12/21 09:15 General appearance: Present: no acute distress, well-nourished - EENT Eyes: Present: PERRL, EOM intact - Neck Neck: Present: supple, normal ROM - Respiratory Respiratory effort: normal Respiratory: bilateral: diminished, negative: rales, rhonchi, wheezing - Cardiovascular Rhythm: regular Heart Sounds: Present: S1 & S2 - Extremities Extremities: no ischemia, No edema - Abdominal General gastrointestinal: soft, non-tender, non-distended, normal bowel sounds - Integumentary Integumentary: Present: clear, warm - Psychiatric Psychiatric: appropriate mood/affect, cooperative - Neurologic Neurologic: moves all extremities HEART Score - HEART Score Risk factors: 1-2 risk factors Troponin: < normal limit - Critical Actions Critical Actions: 0-3 pts:0.9-1.7%risk of adverse cardiac event.Candidate for discharge Results - Labs CBC & Chem 7: 02/12/21 05:52 02/11/21 18:03 Labs: Laboratory Last Values WBC 15.8 K/mm3 (4.5-11.0) H 02/11/21 18:03 RBC 3.82 M/mm3 (3.65-5.03) 02/11/21 18:03 Hgb 11.5 gm/dl (10.1-14.3) 02/12/21 05:52 Hct 32.8 % (30.3-42.9) 02/12/21 05:52 MCV 87 fl (79-97) 02/11/21 18:03 MCH 30 pg (28-32) 02/11/21 18:03 MCHC 34 % (30-34) 02/11/21 18:03 RDW 13.4 % (13.2-15.2) 02/11/21 18:03 Plt Count 228 K/mm3 (140-440) 02/11/21 18:03 Add Manual Diff Complete 02/11/21 02:39 Total Counted 100 02/11/21 02:39 Seg Neutrophils % Artificial Cherry Maker 02/11/21 02:39 Seg Neuts % (Manual) 86.0 % (40.0-70.0) H 02/11/21 02:39 Band Neutrophils % 4.0 % 02/11/21 02:39 Lymphocytes % (Manual) 9.0 % (13.4-35.0) L 02/11/21 02:39 Monocytes % (Manual) 1.0 % (0.0-7.3) 02/11/21 02:39 Nucleated RBC % Not Reportable 02/11/21 02:39 Seg Neutrophils # Man 21.3 K/mm3 (1.8-7.7) H 02/11/21 02:39 Band Neutrophils # 1.0 K/mm3 02/11/21 02:39 Lymphocytes # (Manual) 2.2 K/mm3 (1.2-5.4) 02/11/21 02:39 Abs React Lymphs (Man) 0.0 K/mm3 02/11/21 02:39 Monocytes # (Manual) 0.2 K/mm3 (0.0-0.8) 02/11/21 02:39 Eosinophils # (Manual) 0.0 K/mm3 (0.0-0.4) 02/11/21 02:39 Basophils # (Manual) 0.0 K/mm3 (0.0-0.1) 02/11/21 02:39 Metamyelocytes # 0.0 K/mm3 02/11/21 02:39 Myelocytes # 0.0 K/mm3 02/11/21 02:39 Promyelocytes # 0.0 K/mm3 02/11/21 02:39 Blast Cells # 0.0 K/mm3 02/11/21 02:39 WBC Morphology Not Reportable 02/11/21 02:39 Hypersegmented Neuts Not Reportable 02/11/21 02:39 Hyposegmented Neuts Not Reportable 02/11/21 02:39 Hypogranular Neuts Not Reportable 02/11/21 02:39 Smudge Cells Not Reportable 02/11/21 02:39 Toxic Granulation Not Reportable 02/11/21 02:39 Toxic Vacuolation Not Reportable 02/11/21 02:39 Dohle Bodies Not Reportable 02/11/21 02:39 Pelger-Huet Anomaly Not Reportable 02/11/21 02:39 Can Rods Not Reportable 02/11/21 02:39 Platelet Estimate Cons 02/11/21 02:39 Clumped Platelets Not Reportable 02/11/21 02:39 Plt Clumps, EDTA Not Reportable 02/11/21 02:39 Large Platelets Not Reportable 02/11/21 02:39 Giant Platelets Not Reportable 02/11/21 02:39 Platelet Satelliting Not Reportable 02/11/21 02:39 Plt Morphology Comment Not Reportable 02/11/21 02:39 RBC Morphology Not Reportable 02/11/21 02:39 Dimorphic RBCs Not Reportable 02/11/21 02:39 Polychromasia Not Reportable 02/11/21 02:39 Hypochromasia Not Reportable 02/11/21 02:39 Poikilocytosis Not Reportable 02/11/21 02:39 Anisocytosis Not Reportable 02/11/21 02:39 Microcytosis Not Reportable 02/11/21 02:39 Macrocytosis Not Reportable 02/11/21 02:39 Spherocytes Not Reportable 02/11/21 02:39 Pappenheimer Bodies Not Reportable 02/11/21 02:39 Sickle Cells Not Reportable 02/11/21 02:39 Target Cells Not Reportable 02/11/21 02:39 Tear Drop Cells Not Reportable 02/11/21 02:39 Ovalocytes Not Reportable 02/11/21 02:39 Helmet Cells Not Reportable 02/11/21 02:39 Gupta-[place] Bodies Not Reportable 02/11/21 02:39 Orchard Rings Not Reportable 02/11/21 02:39 Donald Cells Not Reportable 02/11/21 02:39 Bite Cells Not Reportable 02/11/21 02:39 Crenated Cell Not Reportable 02/11/21 02:39 Elliptocytes Not Reportable 02/11/21 02:39 Acanthocytes (Spur) Not Reportable 02/11/21 02:39 Rouleaux Not Reportable 02/11/21 02:39 Hemoglobin C Crystals Not Reportable 02/11/21 02:39 Schistocytes Rare 02/11/21 02:39 Malaria parasites Not Reportable 02/11/21 02:39 Sacha Bodies Not Reportable 02/11/21 02:39 Hem Pathologist Commnt No 02/11/21 02:39 APTT 28.0 Sec. (24.2-36.6) 02/11/21 02:39 ABG pH 7.358 (7.320-7.450) 02/11/21 06:35 POC ABG pCO2 40.5 mmHg (32.0-48.0) 02/11/21 06:35 POC ABG pO2 136.7 mmHg (83-108) H 02/11/21 06:35 POC ABG HCO3 22.3 02/11/21 06:35 ABG O2 Saturation 98.7 (0-100) 02/11/21 06:35 POC ABG Base Excess -3 02/11/21 06:35 ABG Hemoglobin 11.5 (12.0-17.5) L 02/11/21 06:35 ABG Oxyhemoglobin 98.2 (94-98) H 02/11/21 06:35 ABG Methemoglobin 0.3 (0.0-1.5) 02/11/21 06:35 ABG Sodium 137.1 mmol/L (136.0-145.0) 02/11/21 06:35 ABG Potassium 3.7 mmol/L (3.40-4.50) 02/11/21 06:35 ABG Chloride 107.0 mmol/L (98-107) 02/11/21 06:35 ABG Glucose 68 mg/dL (65-95) 02/11/21 06:35 Carboxyhemoglobin 0.2 (0.5-1.5) L 02/11/21 06:35 FiO2 % 100 02/11/21 06:35 Sodium 134 mmol/L (137-145) L 02/11/21 18:03 Potassium 4.1 mmol/L (3.6-5.0) 02/11/21 18:03 Chloride 104.4 mmol/L (98-107) 02/11/21 18:03 Carbon Dioxide 23 mmol/L (22-30) 02/11/21 18:03 Anion Gap 11 mmol/L 02/11/21 18:03 BUN 7 mg/dL (7-17) 02/11/21 18:03 Creatinine 0.7 mg/dL (0.6-1.2) 02/11/21 18:03 Estimated GFR > 60 ml/min 02/11/21 18:03 BUN/Creatinine Ratio 10 % 02/11/21 18:03 Glucose 103 mg/dL (65-100) H 02/11/21 18:03 Lactic Acid 1.30 mmol/L (0.7-2.0) 02/11/21 18:03 Calcium 7.9 mg/dL (8.4-10.2) L 02/11/21 18:03 Magnesium 2.30 mg/dL (1.7-2.3) 02/11/21 02:39 Total Bilirubin 0.30 mg/dL (0.1-1.2) 02/11/21 18:03 AST 29 units/L (5-40) 02/11/21 18:03 ALT 28 units/L (7-56) 02/11/21 18:03 Alkaline Phosphatase 43 units/L (35-129) 02/11/21 18:03 Total Creatine Kinase 185 units/L (30-135) H 02/11/21 02:39 Total Protein 5.5 g/dL (6.3-8.2) L D 02/11/21 18:03 Albumin 3.2 g/dL (3.9-5) L 02/11/21 18:03 Albumin/Globulin Ratio 1.4 % 02/11/21 18:03 HCG, Quant < 2 mIU/mL (0-4) 02/11/21 02:39 Arterial Blood Glucose 68 mg/dL (65-95) 02/11/21 06:35 Arterial Blood Ionized Calcium 4.5 mg/dL (4.6-5.3) L 02/11/21 06:35 Urine Color Yellow (Yellow) 02/11/21 Unknown Urine Turbidity Clear (Clear) 02/11/21 Unknown Urine pH 6.0 (5.0-7.0) 02/11/21 Unknown Ur Specific [place] 1.011 (1.003-1.030) 02/11/21 Unknown Urine Protein 100 mg/dl mg/dL (Negative) 02/11/21 Unknown Urine Glucose (UA) >=500 mg/dL (Negative) 02/11/21 Unknown Urine Ketones Neg mg/dL (Negative) 02/11/21 Unknown Urine Blood Lg (Negative) 02/11/21 Unknown Urine Nitrite Neg (Negative) 02/11/21 Unknown Urine Bilirubin Neg (Negative) 02/11/21 Unknown Urine Urobilinogen < 2.0 mg/dL (<2.0) 02/11/21 Unknown Ur Leukocyte Esterase Sm (Negative) 02/11/21 Unknown Urine WBC (Auto) 34.0 /HPF (0.0-6.0) H 02/11/21 Unknown Urine RBC (Auto) 72.0 /HPF (0.0-6.0) 02/11/21 Unknown U Epithel Cells (Auto) 2.0 /HPF (0-13.0) 02/11/21 Unknown Urine Bacteria (Auto) 1+ /HPF (Negative) 02/11/21 Unknown Urine Mucus Few /HPF 02/11/21 Unknown Urine Yeast (Budding) Few /HPF 02/11/21 Unknown Salicylates < 0.3 mg/dL (2.8-20.0) L 02/11/21 02:39 Urine Opiates Screen Presumptive negative 02/11/21 04:17 Urine Methadone Screen Presumptive negative 02/11/21 04:17 Acetaminophen 5.0 ug/mL (10.0-30.0) L 02/11/21 02:39 Ur Barbiturates Screen Presumptive negative 02/11/21 04:17 Ur Phencyclidine Scrn Presumptive negative 02/11/21 04:17 Ur Amphetamines Screen Presumptive negative 02/11/21 04:17 U Benzodiazepines Scrn Presumptive negative 02/11/21 04:17 Urine Cocaine Screen Presumptive positive 02/11/21 04:17 U Marijuana (THC) Screen Presumptive negative 02/11/21 04:17 Drugs of Abuse Note Disclamer 02/11/21 04:17 Plasma/Serum Alcohol 0.02 % (0-0.07) 02/11/21 02:39 Microbiology: Microbiology 02/11/21 02:39 Peripheral/Venous Blood Culture - Preliminary NO GROWTH AFTER 24 HOURS 02/11/21 02:32 Peripheral/Venous Blood Culture - Preliminary NO GROWTH AFTER 24 HOURS Active Medications - Current Medications Current Medications: Generic Name Dose Route Start Last Admin Trade Name Freq PRN Reason Stop Dose Admin Acetaminophen 650 mg 02/11/21 22:27 Acetaminophen 325 Mg Tab PO Q4H PRN Fever >101 Piperacillin Sod/Tazobactam Sod 3.375 gm in 50 mls @ 100 mls/hr 02/12/21 06:00 02/12/21 05:41 Zosyn/Ns 3.375gm/50ml IV 100 mls/hr Q8H OLIVIA Administration Protocol Azithromycin 500 mg in 250 mls @ 250 mls/hr 02/11/21 23:00 02/12/21 10:35 Zithromax/Ns IV 250 mls/hr Q24HR OLIVIA Administration Sodium Chloride 1,000 mls @ 125 mls/hr 02/11/21 22:30 02/11/21 23:51 Nacl 0.9% 1000 Ml IV 125 mls/hr DIRECT OLIVIA Administration Naloxone HCl 0.1 mg 02/11/21 02:19 Naloxone 0.4 Mg/1 Ml Inj IV Q2MIN PRN Res Rate </= 8 or 02 SAT < 92% Ondansetron HCl 4 mg 02/11/21 06:38 02/11/21 07:10 Ondansetron 4 Mg/2 Ml Inj IV 4 mg Q6HR PRN Administration Nausea Pantoprazole Sodium 40 mg 02/13/21 07:30 Pantoprazole 40 Mg Tab PO QDAC OLIVIA
--- NOTE | 2021-02-12 12:25 | Event Note ---
Date: 02/12/21 Consult for PTX. Small basilar PTX seen on CT. repeat CXR this am shows improvement in pneumomediastinum. would suggest continuing supplemental oxygen therapy as this appears to be improving unwanted air. Suggest checking COVID. CXR is improving and patient is stable.
--- NOTE | 2021-02-12 13:35 | Consultation ---
History of Present Illness Consult date: 02/12/21 Chief complaint: pneumomediastinum, pneumothorax - History of present illness History of present illness: 35 yo F with hx of substance and ETOH abuse who presented to ER after being found unresponsive from a presumed heroin overdose. Patient is a poor historian. States she has a long standing hx of substance abuse and wants to get help. W/U in the ER revealed pneumomediastinum and small right basilar pneumthorax. Apparently the patient had severe n/v, retching. She is asymptomatic at this time. She has been tolerating a diet. Denies n/v, sob. Mild discomfort in the chest and throat with deep breathing. NO f/c. Past History Past Medical History: No medical history Past Surgical History: No surgical history Social history: smoking, other (narcotic abuse) Family history: no significant family history Medications and Allergies Allergies Allergy/AdvReac Type Severity Reaction Status Date / Time No Known Allergies Allergy Unverified 02/11/21 04:07 Home Medications Medication Instructions Recorded Confirmed Last Taken Type No Known Home Medications [No 02/11/21 02/11/21 Unknown History Reported Home Medications] Active Meds: Active Medications Acetaminophen (Acetaminophen 325 Mg Tab) 650 mg PO Q4H PRN PRN Reason: Fever >101 Piperacillin Sod/Tazobactam Sod (Zosyn/Ns 3.375gm/50ml) 3.375 gm in 50 mls @ 100 mls/hr IV Q8H OLIVIA; Protocol Last Admin: 02/12/21 05:41 Dose: 100 mls/hr Documented by: Azithromycin (Zithromax/Ns) 500 mg in 250 mls @ 250 mls/hr IV Q24HR OLIVIA Last Admin: 02/12/21 10:35 Dose: 250 mls/hr Documented by: Sodium Chloride (Nacl 0.9% 1000 Ml) 1,000 mls @ 125 mls/hr IV DIRECT OLIVIA Last Admin: 02/11/21 23:51 Dose: 125 mls/hr Documented by: Naloxone HCl (Naloxone 0.4 Mg/1 Ml Inj) 0.1 mg IV Q2MIN PRN PRN Reason: Res Rate </= 8 or 02 SAT < 92% Ondansetron HCl (Ondansetron 4 Mg/2 Ml Inj) 4 mg IV Q6HR PRN PRN Reason: Nausea Last Admin: 02/11/21 07:10 Dose: 4 mg Documented by: Pantoprazole Sodium (Pantoprazole 40 Mg Tab) 40 mg PO QDAC OLIVIA Review of Systems All systems: negative (10 pt ROS performed and negative except for that listed in HPI) Exam Vital Signs Pulse Resp 121 H 21 02/11/21 02:10 02/11/21 02:10 Narrative exam: Gen.: Awake, alert, oriented 3. No apparent distress ENT: Trachea midline. No lymphadenopathy. No scleral icterus or conjunctival pallor. No creptius CV: S1, S2 present Respiratory: No audible wheezes. No crepitus Extremities: No clubbing, cyanosis, edema Results - Labs 02/12/21 05:52 02/11/21 18:03 Abnormal lab results 02/11/21 02/11/21 02/11/21 Range/Units 06:35 18:03 18:03 WBC 15.8 H (4.5-11.0) K/mm3 POC ABG pO2 136.7 H (83-108) mmHg ABG Hemoglobin 11.5 L (12.0-17.5) ABG Oxyhemoglobin 98.2 H (94-98) Carboxyhemoglobin 0.2 L (0.5-1.5) Sodium 134 L (137-145) mmol/L Glucose 103 H (65-100) mg/dL Calcium 7.9 L (8.4-10.2) mg/dL Total Protein 5.5 L D (6.3-8.2) g/dL Albumin 3.2 L (3.9-5) g/dL Arterial Blood Ionized Calcium 4.5 L (4.6-5.3) mg/dL Diabetes panel 02/11/21 Range/Units 18:03 Sodium 134 L (137-145) mmol/L Potassium 4.1 (3.6-5.0) mmol/L Chloride 104.4 (98-107) mmol/L Carbon Dioxide 23 (22-30) mmol/L BUN 7 (7-17) mg/dL Creatinine 0.7 (0.6-1.2) mg/dL Glucose 103 H (65-100) mg/dL Calcium 7.9 L (8.4-10.2) mg/dL AST 29 (5-40) units/L ALT 28 (7-56) units/L Alkaline Phosphatase 43 (35-129) units/L Total Protein 5.5 L D (6.3-8.2) g/dL Albumin 3.2 L (3.9-5) g/dL Calcium panel 02/11/21 Range/Units 18:03 Calcium 7.9 L (8.4-10.2) mg/dL Albumin 3.2 L (3.9-5) g/dL Pituitary panel 02/11/21 Range/Units 18:03 Sodium 134 L (137-145) mmol/L Potassium 4.1 (3.6-5.0) mmol/L Chloride 104.4 (98-107) mmol/L Carbon Dioxide 23 (22-30) mmol/L BUN 7 (7-17) mg/dL Creatinine 0.7 (0.6-1.2) mg/dL Glucose 103 H (65-100) mg/dL Calcium 7.9 L (8.4-10.2) mg/dL Adrenal panel 02/11/21 Range/Units 18:03 Sodium 134 L (137-145) mmol/L Potassium 4.1 (3.6-5.0) mmol/L Chloride 104.4 (98-107) mmol/L Carbon Dioxide 23 (22-30) mmol/L BUN 7 (7-17) mg/dL Creatinine 0.7 (0.6-1.2) mg/dL Glucose 103 H (65-100) mg/dL Calcium 7.9 L (8.4-10.2) mg/dL Total Bilirubin 0.30 (0.1-1.2) mg/dL AST 29 (5-40) units/L ALT 28 (7-56) units/L Alkaline Phosphatase 43 (35-129) units/L Total Protein 5.5 L D (6.3-8.2) g/dL Albumin 3.2 L (3.9-5) g/dL - Imaging CT scan - chest: report reviewed, image reviewed Additional studies: CT neck Assessment and Plan 35 yo F with 1. pneumomediastinum 2. small right PTX 3. heroin OD Pt stable, on room air and heri diet. CT scan neck with oral contrast without extrav. Repeat CXR yesterday showed no PTX and mild improvement in pneumomediastinum. Plan: 1. diet as heri 2. incentive spirometry/pulm toilet 3. repeat CXR in am. No indication for chest tube at this time. 4. GI and pulm notes reviewed - agree with A/P 5. continue abx 6. case management consult Per discussion with Dr. Ivey, he discussed case with thoracic surgery at [place] - no surgical intervention was warranted. Pt was accepted for transfer for observation but improved significantly over 24 hour period and no longer required transfer. Thank you for this consultation. Please call with any questions or concerns. Evaluation and treatment of this patient was during the time of the national and state emergency arising from COVID19 coronavirus pandemic. Treatment and procedures performed meet the current and available best practice and guidelines for patient during the COVID pandemic.
[2021-02-12] MEDS ORDERED: PANTOPRAZOLE 40 MG INJ IV SCH (22:00)
[2021-02-13] MEDS ORDERED: PHENOL 1.4% 177 ML BOTTLE MM PRN (01:07)
[2021-02-13 07:11] LABS: Basophils % (Auto) 0.3 % (0.0-1.8); Eosinophils # (Auto) 0.1 K/mm3 (0.0-0.4); Eosinophils % (Auto) 1.1 % (0.0-4.3); Hematocrit 33.9 % (30.3-42.9); Hemoglobin 11.8 gm/dl (10.1-14.3); Lymphocytes % (Auto) 28.3 % (13.4-35.0); Mean Corpuscular HGB Conc 35 % (30-34); Mean Corpuscular Volume 86 fl (79-97); Monocytes # (Auto) 0.8 K/mm3 (0.0-0.8); Monocytes % (Auto) 10.7 % (0.0-7.3); Platelet Count 241 K/mm3 (140-440); Red Blood Count 3.93 M/mm3 (3.65-5.03); Red Cell Distribution Width 13.3 % (13.2-15.2)
[2021-02-13 07:14] LABS: Blood Urea Nitrogen 6 mg/dL (7-17); Calcium 8.5 mg/dL (8.4-10.2); Hemolysis Index 1
[2021-02-13 07:36] LABS: BUN/Creatinine Ratio 9
[2021-02-13] MEDS: PANTOPRAZOLE 40 MG TAB PO SCH (07:55)
[2021-02-13] MEDS: PIPERACILLIN/TAZOBACTAM 3.375 3.375 GM/50 ML BAG IV SCH ×3 (08:58→22:01)
--- NOTE | 2021-02-13 10:57 | Progress Note ---
Assessment and Plan Assessment and plan: -- Acute metabolic encephalopathy; POA Current Visit: Yes Status: Acute Plan to address problem: Present on admission, now resolved Patient is alert awake oriented x3 Continue supportive care --Possible overdose Current Visit: Yes Status: Acute Plan to address problem: Supportive care Drug screen positive for cocaine --Pneumomediastinum Current Visit: Yes Status: Acute Plan to address problem: On CT chest/chest x-ray Surgery and pulmonary evaluated Continue supportive care --Very small pneumothorax on right Current Visit: Yes Status: Acute Plan to address problem: Slightly improved, continue nasal cannula oxygen Titrate O2 sats to more than 90% Pulmonary evaluated supportive care --Bronchopneumonia Current Visit: Yes Status: Acute Plan to address problem: Continue empiric antibiotics Follow cultures --Coffee ground emesis; POA Current Visit: Yes Status: Acute Plan to address problem: Closely monitor H&H IV Protonix, GI evaluated the patient Closely monitor adjust the management as needed. --Substance abuse/cocaine Current Visit: Yes Status: Acute Plan to address problem: Counseling done, advised strongly to quit recreational drug use --DVT prophylaxis; Current Visit: Yes Status: Acute Plan to address problem: SCD Closely monitor the patient and adjust management as needed Plan of care reviewed with the patient and her nurse Director [employer] recommendations noted and appreciated 02/12/2021; ER physician discussed with cardiothoracic surgeon at [facility] prior to admission No intervention needed, advised supportive care, no indication for transfer to [facility]. The event continue to monitor , if patient is stable Will consider to downgrade the patient to telemetry. 02/13/2021; patient feels better, ambulate as tolerated, possible discharge today /tomorrow if stable Repeat chest x-ray reviewed, follow GI, surgery and pulmonary recommendations History Interval history: I have seen and examined the patient at the bedside this morning patient's chart and medications reviewed Patient feels slightly better denies any chest pain or shortness of breath Vital signs noted Today's chest x-ray reviewed, trace pneumothorax improved Hospitalist Physical - Constitutional Vitals: Temp Pulse Resp BP Pulse Ox 98.8 F 86 18 131/81 95 02/11/21 17:50 02/12/21 22:00 02/12/21 22:00 02/12/21 20:20 02/13/21 09:44 General appearance: Present: no acute distress, well-nourished - EENT Eyes: Present: PERRL, EOM intact - Neck Neck: Present: supple, normal ROM - Respiratory Respiratory effort: normal Respiratory: bilateral: diminished, negative: rales, rhonchi, wheezing - Cardiovascular Rhythm: regular Heart Sounds: Present: S1 & S2 - Extremities Extremities: no ischemia, No edema - Abdominal General gastrointestinal: soft, non-tender, non-distended, normal bowel sounds - Integumentary Integumentary: Present: clear, warm - Psychiatric Psychiatric: appropriate mood/affect, cooperative - Neurologic Neurologic: CNII-XII intact, moves all extremities HEART Score - HEART Score Risk factors: 1-2 risk factors Troponin: < normal limit - Critical Actions Critical Actions: 0-3 pts:0.9-1.7%risk of adverse cardiac event.Candidate for discharge Results - Labs CBC & Chem 7: 02/13/21 04:00 02/13/21 04:00 Labs: Laboratory Last Values WBC 7.2 K/mm3 (4.5-11.0) 02/13/21 04:00 RBC 3.93 M/mm3 (3.65-5.03) 02/13/21 04:00 Hgb 11.8 gm/dl (10.1-14.3) 02/13/21 04:00 Hct 33.9 % (30.3-42.9) 02/13/21 04:00 MCV 86 fl (79-97) 02/13/21 04:00 MCH 30 pg (28-32) 02/13/21 04:00 MCHC 35 % (30-34) H 02/13/21 04:00 RDW 13.3 % (13.2-15.2) 02/13/21 04:00 Plt Count 241 K/mm3 (140-440) 02/13/21 04:00 Lymph % (Auto) 28.3 % (13.4-35.0) 02/13/21 04:00 Esmeralda % (Auto) 10.7 % (0.0-7.3) H 02/13/21 04:00 Eos % (Auto) 1.1 % (0.0-4.3) 02/13/21 04:00 Baso % (Auto) 0.3 % (0.0-1.8) 02/13/21 04:00 Lymph # (Auto) 2.0 K/mm3 (1.2-5.4) 02/13/21 04:00 Esmeralda # (Auto) 0.8 K/mm3 (0.0-0.8) 02/13/21 04:00 Eos # (Auto) 0.1 K/mm3 (0.0-0.4) 02/13/21 04:00 Baso # (Auto) 0.0 K/mm3 (0.0-0.1) 02/13/21 04:00 Add Manual Diff Complete 02/11/21 02:39 Total Counted 100 02/11/21 02:39 Seg Neutrophils % 59.6 % (40.0-70.0) 02/13/21 04:00 Seg Neuts % (Manual) 86.0 % (40.0-70.0) H 02/11/21 02:39 Band Neutrophils % 4.0 % 02/11/21 02:39 Lymphocytes % (Manual) 9.0 % (13.4-35.0) L 02/11/21 02:39 Monocytes % (Manual) 1.0 % (0.0-7.3) 02/11/21 02:39 Nucleated RBC % Not Reportable 02/11/21 02:39 Seg Neutrophils # 4.3 K/mm3 (1.8-7.7) 02/13/21 04:00 Seg Neutrophils # Man 21.3 K/mm3 (1.8-7.7) H 02/11/21 02:39 Band Neutrophils # 1.0 K/mm3 02/11/21 02:39 Lymphocytes # (Manual) 2.2 K/mm3 (1.2-5.4) 02/11/21 02:39 Abs React Lymphs (Man) 0.0 K/mm3 02/11/21 02:39 Monocytes # (Manual) 0.2 K/mm3 (0.0-0.8) 02/11/21 02:39 Eosinophils # (Manual) 0.0 K/mm3 (0.0-0.4) 02/11/21 02:39 Basophils # (Manual) 0.0 K/mm3 (0.0-0.1) 02/11/21 02:39 Metamyelocytes # 0.0 K/mm3 02/11/21 02:39 Myelocytes # 0.0 K/mm3 02/11/21 02:39 Promyelocytes # 0.0 K/mm3 02/11/21 02:39 Blast Cells # 0.0 K/mm3 02/11/21 02:39 WBC Morphology Not Reportable 02/11/21 02:39 Hypersegmented Neuts Not Reportable 02/11/21 02:39 Hyposegmented Neuts Not Reportable 02/11/21 02:39 Hypogranular Neuts Not Reportable 02/11/21 02:39 Smudge Cells Not Reportable 02/11/21 02:39 Toxic Granulation Not Reportable 02/11/21 02:39 Toxic Vacuolation Not Reportable 02/11/21 02:39 Dohle Bodies Not Reportable 02/11/21 02:39 Pelger-Huet Anomaly Not Reportable 02/11/21 02:39 Can Rods Not Reportable 02/11/21 02:39 Platelet Estimate Cons 02/11/21 02:39 Clumped Platelets Not Reportable 02/11/21 02:39 Plt Clumps, EDTA Not Reportable 02/11/21 02:39 Large Platelets Not Reportable 02/11/21 02:39 Giant Platelets Not Reportable 02/11/21 02:39 Platelet Satelliting Not Reportable 02/11/21 02:39 Plt Morphology Comment Not Reportable 02/11/21 02:39 RBC Morphology Not Reportable 02/11/21 02:39 Dimorphic RBCs Not Reportable 02/11/21 02:39 Polychromasia Not Reportable 02/11/21 02:39 Hypochromasia Not Reportable 02/11/21 02:39 Poikilocytosis Not Reportable 02/11/21 02:39 Anisocytosis Not Reportable 02/11/21 02:39 Microcytosis Not Reportable 02/11/21 02:39 Macrocytosis Not Reportable 02/11/21 02:39 Spherocytes Not Reportable 02/11/21 02:39 Pappenheimer Bodies Not Reportable 02/11/21 02:39 Sickle Cells Not Reportable 02/11/21 02:39 Target Cells Not Reportable 02/11/21 02:39 Tear Drop Cells Not Reportable 02/11/21 02:39 Ovalocytes Not Reportable 02/11/21 02:39 Helmet Cells Not Reportable 02/11/21 02:39 [place] Bodies Not Reportable 02/11/21 02:39 [place] Rings Not Reportable 02/11/21 02:39 [place] Cells Not Reportable 02/11/21 02:39 Bite Cells Not Reportable 02/11/21 02:39 Crenated Cell Not Reportable 02/11/21 02:39 Elliptocytes Not Reportable 02/11/21 02:39 Acanthocytes (Spur) Not Reportable 02/11/21 02:39 Rouleaux Not Reportable 02/11/21 02:39 Hemoglobin C Crystals Not Reportable 02/11/21 02:39 Schistocytes Rare 02/11/21 02:39 Malaria parasites Not Reportable 02/11/21 02:39 Sacha Bodies Not Reportable 02/11/21 02:39 Hem Pathologist Commnt No 02/11/21 02:39 APTT 28.0 Sec. (24.2-36.6) 02/11/21 02:39 ABG pH 7.358 (7.320-7.450) 02/11/21 06:35 POC ABG pCO2 40.5 mmHg (32.0-48.0) 02/11/21 06:35 POC ABG pO2 136.7 mmHg (83-108) H 02/11/21 06:35 POC ABG HCO3 22.3 02/11/21 06:35 ABG O2 Saturation 98.7 (0-100) 02/11/21 06:35 POC ABG Base Excess -3 02/11/21 06:35 ABG Hemoglobin 11.5 (12.0-17.5) L 02/11/21 06:35 ABG Oxyhemoglobin 98.2 (94-98) H 02/11/21 06:35 ABG Methemoglobin 0.3 (0.0-1.5) 02/11/21 06:35 ABG Sodium 137.1 mmol/L (136.0-145.0) 02/11/21 06:35 ABG Potassium 3.7 mmol/L (3.40-4.50) 02/11/21 06:35 ABG Chloride 107.0 mmol/L (98-107) 02/11/21 06:35 ABG Glucose 68 mg/dL (65-95) 02/11/21 06:35 Carboxyhemoglobin 0.2 (0.5-1.5) L 02/11/21 06:35 FiO2 % 100 02/11/21 06:35 Sodium 139 mmol/L (137-145) 02/13/21 04:00 Potassium 3.7 mmol/L (3.6-5.0) 02/13/21 04:00 Chloride 105.4 mmol/L (98-107) 02/13/21 04:00 Carbon Dioxide 28 mmol/L (22-30) 02/13/21 04:00 Anion Gap 9 mmol/L 02/13/21 04:00 BUN 6 mg/dL (7-17) L 02/13/21 04:00 Creatinine 0.7 mg/dL (0.6-1.2) 02/13/21 04:00 Estimated GFR > 60 ml/min 02/13/21 04:00 BUN/Creatinine Ratio 9 % 02/13/21 04:00 Glucose 90 mg/dL (65-100) 02/13/21 04:00 Lactic Acid 1.30 mmol/L (0.7-2.0) 02/11/21 18:03 Calcium 8.5 mg/dL (8.4-10.2) 02/13/21 04:00 Magnesium 1.90 mg/dL (1.7-2.3) 02/13/21 04:00 Total Bilirubin 0.30 mg/dL (0.1-1.2) 02/11/21 18:03 AST 29 units/L (5-40) 02/11/21 18:03 ALT 28 units/L (7-56) 02/11/21 18:03 Alkaline Phosphatase 43 units/L (35-129) 02/11/21 18:03 Total Creatine Kinase 185 units/L (30-135) H 02/11/21 02:39 Total Protein 5.5 g/dL (6.3-8.2) L D 02/11/21 18:03 Albumin 3.2 g/dL (3.9-5) L 02/11/21 18:03 Albumin/Globulin Ratio 1.4 % 02/11/21 18:03 HCG, Quant < 2 mIU/mL (0-4) 02/11/21 02:39 Arterial Blood Glucose 68 mg/dL (65-95) 02/11/21 06:35 Arterial Blood Ionized Calcium 4.5 mg/dL (4.6-5.3) L 02/11/21 06:35 Urine Color Yellow (Yellow) 02/11/21 Unknown Urine Turbidity Clear (Clear) 02/11/21 Unknown Urine pH 6.0 (5.0-7.0) 02/11/21 Unknown Ur Specific [place] 1.011 (1.003-1.030) 02/11/21 Unknown Urine Protein 100 mg/dl mg/dL (Negative) 02/11/21 Unknown Urine Glucose (UA) >=500 mg/dL (Negative) 02/11/21 Unknown Urine Ketones Neg mg/dL (Negative) 02/11/21 Unknown Urine Blood Lg (Negative) 02/11/21 Unknown Urine Nitrite Neg (Negative) 02/11/21 Unknown Urine Bilirubin Neg (Negative) 02/11/21 Unknown Urine Urobilinogen < 2.0 mg/dL (<2.0) 02/11/21 Unknown Ur Leukocyte Esterase Sm (Negative) 02/11/21 Unknown Urine WBC (Auto) 34.0 /HPF (0.0-6.0) H 02/11/21 Unknown Urine RBC (Auto) 72.0 /HPF (0.0-6.0) 02/11/21 Unknown U Epithel Cells (Auto) 2.0 /HPF (0-13.0) 02/11/21 Unknown Urine Bacteria (Auto) 1+ /HPF (Negative) 02/11/21 Unknown Urine Mucus Few /HPF 02/11/21 Unknown Urine Yeast (Budding) Few /HPF 02/11/21 Unknown Salicylates < 0.3 mg/dL (2.8-20.0) L 02/11/21 02:39 Urine Opiates Screen Presumptive negative 02/11/21 04:17 Urine Methadone Screen Presumptive negative 02/11/21 04:17 Acetaminophen 5.0 ug/mL (10.0-30.0) L 02/11/21 02:39 Ur Barbiturates Screen Presumptive negative 02/11/21 04:17 Ur Phencyclidine Scrn Presumptive negative 02/11/21 04:17 Ur Amphetamines Screen Presumptive negative 02/11/21 04:17 U Benzodiazepines Scrn Presumptive negative 02/11/21 04:17 Urine Cocaine Screen Presumptive positive 02/11/21 04:17 U Marijuana (THC) Screen Presumptive negative 02/11/21 04:17 Drugs of Abuse Note Disclamer 02/11/21 04:17 Plasma/Serum Alcohol 0.02 % (0-0.07) 02/11/21 02:39 Microbiology: Microbiology 02/11/21 02:39 Peripheral/Venous Blood Culture - Preliminary NO GROWTH AFTER 48 HOURS 02/11/21 02:32 Peripheral/Venous Blood Culture - Preliminary NO GROWTH AFTER 48 HOURS 02/11/21 Unknown Urine,Clean Catch Urine Culture - Preliminary Nieto/IV: Voiding Method Toilet Active Medications - Current Medications Current Medications: Generic Name Dose Route Start Last Admin Trade Name Freq PRN Reason Stop Dose Admin Acetaminophen 650 mg 02/11/21 22:27 Acetaminophen 325 Mg Tab PO Q4H PRN Fever >101 Piperacillin Sod/Tazobactam Sod 3.375 gm in 50 mls @ 100 mls/hr 02/12/21 06:00 02/13/21 08:58 Zosyn/Ns 3.375gm/50ml IV 100 mls/hr Q8H OLIVIA Administration Protocol Azithromycin 500 mg in 250 mls @ 250 mls/hr 02/11/21 23:00 02/12/21 10:35 Zithromax/Ns IV 02/15/21 10:59 250 mls/hr Q24HR OLIVIA Administration Sodium Chloride 1,000 mls @ 125 mls/hr 02/11/21 22:30 02/11/21 23:51 Nacl 0.9% 1000 Ml IV 125 mls/hr DIRECT OLIVIA Administration Naloxone HCl 0.1 mg 02/11/21 02:19 Naloxone 0.4 Mg/1 Ml Inj IV Q2MIN PRN Res Rate </= 8 or 02 SAT < 92% Ondansetron HCl 4 mg 02/11/21 06:38 02/11/21 07:10 Ondansetron 4 Mg/2 Ml Inj IV 4 mg Q6HR PRN Administration Nausea Pantoprazole Sodium 40 mg 02/13/21 07:30 02/13/21 07:55 Pantoprazole 40 Mg Tab PO 40 mg QDAC OLIVIA Administration Phenol 1 spray 02/13/21 01:07 Phenol 1.4% 177 Ml Bottle MM PRN PRN Sore Throat
--- NOTE | 2021-02-13 11:00 | Electrocardiograph Report ---
[facility] Test Date: 2021-02-11 Test Time: 03:48:35 Pat Name: LINDSAY FISHER Department: Room: A385 Gender: F Soil Analyst: ROSARIO : 1985 Requested By: MIKAYLA NORIEGA Order Number: [id number] Reading MD: Corby Pop Measurements Intervals [place] Rate: 100 P: -11 MN: 153 QRS: 26 QRSD: 92 T: 17 QT: 363 QTc: 467 Interpretive Statements Sinus tachycardia No previous ECG available for comparison Electronically Signed On 02-13-2021 7:59:54 PDT by Corby Pop
[2021-02-13] MEDS: AZITHROMYCIN/NS 500 MG/250 ML 500 MG/250 ML BAG IV SCH (11:33)
[2021-02-13] MEDS ORDERED: FLU VACC QUAD 2020-2021 (6 months +)/PF 60 0.5 ML SYRINGE IM ONE (12:00)
--- NOTE | 2021-02-13 12:33 | Gastroenterology Progress Note ---
Assessment and Plan - Patient Problems (1) Pneumomediastinum Current Visit: Yes Status: Acute Plan to address problem: - Given the narcotic overdose and recent vomiting, the patient likely had a small microscopic perforation of the esophagus that appears to have healed. - CXray today already shows improvement, vitals/labs are OK, and there is no crepitus on exam. - I would continue antibiotics for 24hours, and regular diet since she is asymptomatic. - If chest pain/severe SOB, repeat imaging with CT; otherwise this can be followed by daily chest xray. - If she is stable today with improved final read on the CXray, then discharge may be possible. I would continue antibiotics PO for 5 days (total). - Continue daily protonix, and be very aggressive with antiemetics to prevent further emesis. Subjective Date of service: 02/13/21 Principal diagnosis: Pneumomediastinum Interval history: The patient is stable without N/V/F/C, and is tolerating a regular diet without pain. Her CXray today looks improved (final read pending). Objective - Constitutional Vitals: Temp Pulse Resp BP Pulse Ox 98.8 F 99 H 18 131/81 95 02/11/21 17:50 02/13/21 10:00 02/12/21 22:00 02/12/21 20:20 02/13/21 09:44 General appearance: no acute distress - Respiratory Respiratory effort: normal Respiratory: bilateral: CTA - Cardiovascular Rhythm: regular Heart Sounds: Present: S1 & S2 - Gastrointestinal General gastrointestinal: Present: soft, non-tender, non-distended - Labs CBC & Chem 7: 02/13/21 04:00 02/13/21 04:00 Labs: Laboratory Results - last 24 hr 02/13/21 02/13/21 04:00 04:00 WBC 7.2 RBC 3.93 Hgb 11.8 Hct 33.9 MCV 86 MCH 30 MCHC 35 H RDW 13.3 Plt Count 241 Lymph % (Auto) 28.3 [place] % (Auto) 10.7 H Eos % (Auto) 1.1 Baso % (Auto) 0.3 Lymph # (Auto) 2.0 [place] # (Auto) 0.8 Eos # (Auto) 0.1 Baso # (Auto) 0.0 Seg Neutrophils % 59.6 Seg Neutrophils # 4.3 Sodium 139 Potassium 3.7 Chloride 105.4 Carbon Dioxide 28 Anion Gap 9 BUN 6 L Creatinine 0.7 Estimated GFR > 60 BUN/Creatinine Ratio 9 Glucose 90 Calcium 8.5 Magnesium 1.90
--- NOTE | 2021-02-13 17:42 | XRay Report ---
CHEST 1 VIEW INDICATION: pneumomedistinum. COMPARISON: 2 days prior FINDINGS: Support devices: None. Heart: Normal. Lungs/Pleura: No acute pulmonary or pleural findings. Trace pneumomediastinum is improved. IMPRESSION: 1. Trace pneumomediastinum appears improved. No pneumothorax is seen. Signer Name: José Manuel German MD Signed: 02/13/2021 5:38 PM Workstation Name: [id number]
--- NOTE | 2021-02-13 18:04 | Progress Note ---
Assessment and Plan 35 yo F with 1. pneumomediastinum 2. small right PTX 3. heroin OD Pt stable, on room air. CXR 02/13/21 - improved trace pneumomediastinum, no PTX Plan: 1. diet as heri 2. incentive spirometry/pulm toilet 3. repeat CXR in am. No indication for chest tube at this time. 4. GI and pulm notes reviewed - agree with A/P 5. continue abx as per GI recs 6. no surgical intervention indicated, ok to dc from surgery standpoint. Evaluation and treatment of this patient was during the time of the national and state emergency arising from COVID19 coronavirus pandemic. Treatment and procedures performed meet the current and available best practice and guidelines for patient during the COVID pandemic. Subjective Date of service: 02/13/21 Narrative: Pt seen and examined. States chest discomfort during breathing has improved significantly. She denies shortness of breath, chest pain. She feels well and is tolerating a diet. Objective Vital Signs - 12hr 02/13/21 02/13/21 02/13/21 09:44 10:00 12:10 Temperature 98.2 F Pulse Rate 99 H 90 Respiratory 16 Rate Blood Pressure 135/85 O2 Sat by Pulse 95 97 Oximetry - General physical appearance Narrative Exam: Gen.: Awake, alert, oriented 3. No apparent distress ENT: Trachea midline. No lymphadenopathy. No scleral icterus or conjunctival pallor. No crepitus CV: S1, S2 present Respiratory: No audible wheezes. No crepitus Extremities: No clubbing, cyanosis, edema - Labs 02/13/21 04:00 02/13/21 04:00 Diabetes panel 02/13/21 Range/Units 04:00 Sodium 139 (137-145) mmol/L Potassium 3.7 (3.6-5.0) mmol/L Chloride 105.4 (98-107) mmol/L Carbon Dioxide 28 (22-30) mmol/L BUN 6 L (7-17) mg/dL Creatinine 0.7 (0.6-1.2) mg/dL Glucose 90 (65-100) mg/dL Calcium 8.5 (8.4-10.2) mg/dL Calcium panel 02/13/21 Range/Units 04:00 Calcium 8.5 (8.4-10.2) mg/dL Pituitary panel 02/13/21 Range/Units 04:00 Sodium 139 (137-145) mmol/L Potassium 3.7 (3.6-5.0) mmol/L Chloride 105.4 (98-107) mmol/L Carbon Dioxide 28 (22-30) mmol/L BUN 6 L (7-17) mg/dL Creatinine 0.7 (0.6-1.2) mg/dL Glucose 90 (65-100) mg/dL Calcium 8.5 (8.4-10.2) mg/dL Adrenal panel 02/13/21 Range/Units 04:00 Sodium 139 (137-145) mmol/L Potassium 3.7 (3.6-5.0) mmol/L Chloride 105.4 (98-107) mmol/L Carbon Dioxide 28 (22-30) mmol/L BUN 6 L (7-17) mg/dL Creatinine 0.7 (0.6-1.2) mg/dL Glucose 90 (65-100) mg/dL Calcium 8.5 (8.4-10.2) mg/dL
[2021-02-13] MEDS: SODIUM CHLORIDE 0.9% 1000 ML 1,000 ML IV SCH (22:01)
[2021-02-14] MEDS: PIPERACILLIN/TAZOBACTAM 3.375 3.375 GM/50 ML BAG IV SCH (05:39)
[2021-02-14] MEDS: SODIUM CHLORIDE 0.9% 1000 ML 1,000 ML IV SCH (05:42)
--- NOTE | 2021-02-14 07:47 | Discharge Summary ---
Providers - Providers Date of Admission: 02/11/21 23:07 Date of discharge: 02/14/21 Attending physician: IWONA POZO 02/11/21 21:38 Consult to Physician [CONS] Urgent Comment: Dr. Ivey spoke with Dr. Christina @ [phone] Consulting Provider: ROSETTE CHRISTINA Physician Instructions: Reason For Exam: ptx and pneumomediastinum 02/11/21 22:30 Consult to Physician [CONS] Routine Comment: Consulting Provider: JERICHO ALEXANDRE Physician Instructions: Reason For Exam: PNEUMOMEDIASTINUM AND RIGHT SIDED PNEUMOTHORAX 02/12/21 02:38 Consult to Case Management [CONS] Routine Services Needed at Discharge: Supervisor Sterile Processing Notified:: y 02/12/21 05:37 Consult to Physician [CONS] Routine Comment: Consulting Provider: ROS DEL VALLE Physician Instructions: Reason For Exam: COFFEE GROUND EMESIS Primary care physician: PRIVACY COMPLIANCE MANAGER Hospitalization Condition: Good Core Measure Documentation - Palliative Care Palliative Care/ Comfort Measures: Not Applicable Exam - Constitutional Vitals: Temp Pulse Resp BP Pulse Ox 98.2 F 74 16 128/86 98 02/14/21 05:39 02/14/21 05:39 02/14/21 05:39 02/14/21 05:39 02/14/21 05:39 Plan Activity: advance as tolerated Diet: regular Additional Instructions: Avoid NSAID group of pain medications. If you have worsening symptoms contact MD or go to emergency room. Advised to quit recreational drug use. Follow with primary care physician in 5 to 7 days Follow up with: JEANNE RAMIREZ MD [Primary Care Provider] - 3-5 Days DIAMANTE NICHOLAS MD [Staff Physician] - 7 Days
[2021-02-14] MEDS: PANTOPRAZOLE 40 MG TAB PO SCH (09:16)
[2021-02-14 12:51] VITALS: BP 119/79
== END 2021-02-14 13:26 | disposition home or self-care (01) | DRG 917 ==
LOC: ED 02:10 → 3A 21:53 → OBSVTOIN 23:07 → IMCU 23:14 → 3A 02-12 18:51
PROVIDERS: ADMIT Internal Medicine; ATTEND Internal Medicine
PROC: 4A033R1 Measurement of Arterial Saturation, Peripheral, Percutaneous Approach (ICD-10-PCS; principal; 2021-02-11)
DX: T40.1X1A Poisoning by heroin, accidental (unintentional), initial encounter (principal); J18.0 Bronchopneumonia, unspecified organism; G93.41 Metabolic encephalopathy; K92.0 Hematemesis; R65.10 Systemic inflammatory response syndrome (SIRS) of non-infectious origin without acute organ dysfunction; J93.9 Pneumothorax, unspecified; F19.90 Other psychoactive substance use, unspecified, uncomplicated; F11.10 Opioid abuse, uncomplicated; J98.2 Interstitial emphysema; T68.XXXA Hypothermia, initial encounter; Z20.822 Contact with and (suspected) exposure to COVID-19; Y92.89 Other specified places as the place of occurrence of the external cause; Z71.51 Drug abuse counseling and surveillance of drug abuser
CPT/HCPCS: 36415; 70450; 70490; 71045; 71250; 72125; 80048; 80053; 80307; 80320; 81001; 82140; 82550; 82805; 83735; 84702; 85007; 85014; 85018; 85025; 85027; 85730; 87040; 87086; 93005; 96365; 96375; 99292; G0378; C9113; G0480; J0456; J0696; J2310; J2405; J2543; J2765; J7030; J7120; Q9963; U0003

== ENCOUNTER 2021-06-27 18:38 | Emergency (ER) | payer SELFPAY ==
[2021-06-27 21:48] VITALS: BP 133/95
[2021-06-27 22:24] LABS: Basophils % (Auto) 0.5 % (0.0-1.8); Eosinophils % (Auto) 0.3 % (0.0-4.3); Hematocrit 40.3 % (30.3-42.9); Hemoglobin 14.2 gm/dl (10.1-14.3); Lymphocytes # (Auto) 0.6 K/mm3 (1.2-5.4); Lymphocytes % (Auto) 8.1 % (13.4-35.0); Mean Corpuscular HGB Conc 35 % (30-34); Mean Corpuscular Volume 88 fl (79-97); Monocytes # (Auto) 0.4 K/mm3 (0.0-0.8); Monocytes % (Auto) 6.4 % (0.0-7.3); Platelet Count 314 K/mm3 (140-440); Red Blood Count 4.61 M/mm3 (3.65-5.03); Red Cell Distribution Width 12.9 % (13.2-15.2)
[2021-06-27 22:34] LABS: Alanine Aminotransferase 15 units/L (7-56); Albumin 4.5 g/dL (3.9-5); Blood Urea Nitrogen 11 mg/dL (7-17); Calcium 9.4 mg/dL (8.4-10.2); Hemolysis Index 2
[2021-06-27 22:36] LABS: BUN/Creatinine Ratio 22
--- NOTE | 2021-06-27 22:55 | Emergency Department Report ---
ED Abdominal Pain HPI - General Chief Complaint: Abdominal Pain Stated Complaint: ABD PAINS Time Seen by Provider: 06/27/21 22:41 Source: patient Mode of arrival: Ambulatory Limitations: No Limitations - History of Present Illness Initial Comments: 35-year-old female presents to the emergency room stated that about 1:00 today she started having abdominal pains nausea vomiting dizziness and headache. Patient states that all her symptoms have resolved now. 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 Patient does not have a primary care provider. She does not take medications on a daily basis. Patient is not vaccinated. She has not been Covid tested recently. She has no known drug allergies. She denies any urinary symptoms. MD Complaint: abdominal pain -: This afternoon Time: 13:00 Location: diffuse Radiation: none Severity: mild Severity scale (0 -10): 0 Consistency: now resolved Improves With: nothing Worsens With: nothing Context: possible food poisoning Associated Symptoms: nausea, vomiting - Related Data LMP Date: 06/22/21 Previous Rx's Medication Instructions Recorded Last Taken Type Amoxicillin/Potassium Clav 1 each PO BID #6 tablet 02/14/21 Unknown Rx [Augmentin 875-125 Tablet] Pantoprazole [Protonix TAB] 40 mg PO QDAC #30 tablet 02/14/21 Unknown Rx Phenol 1.4% [Chloraseptic] 1 spray MM TID PRN #1 bottle 02/14/21 Unknown Rx Allergies Allergy/AdvReac Type Severity Reaction Status Date / Time No Known Allergies Allergy Unverified 02/11/21 04:07 ED Review of Systems ROS: Stated complaint: ABD PAINS Other details as noted in HPI Comment: All other systems reviewed and negative ED Past Medical Hx - Past Medical History Previous Medical History?: No - Surgical History Past Surgical History?: No - Social History Smoking Status: Never Smoker Substance Use Type: None - Medications Home Medications: Home Medications Medication Instructions Recorded Confirmed Last Taken Type Amoxicillin/Potassium Clav 1 each PO BID #6 tablet 02/14/21 Unknown Rx [Augmentin 875-125 Tablet] Pantoprazole [Protonix TAB] 40 mg PO QDAC #30 tablet 02/14/21 Unknown Rx Phenol 1.4% [Chloraseptic] 1 spray MM TID PRN #1 bottle 02/14/21 Unknown Rx ED Physical Exam - General Limitations: No Limitations General appearance: alert, in no apparent distress - Head Head exam: Present: atraumatic, normocephalic - Eye Eye exam: Present: normal appearance - ENT ENT exam: Present: mucous membranes moist - Neck Neck exam: Present: normal inspection - Respiratory Respiratory exam: Present: normal lung sounds bilaterally. Absent: respiratory distress - Cardiovascular Cardiovascular Exam: Present: regular rate, normal rhythm. Absent: systolic murmur, diastolic murmur, rubs, gallop - GI/Abdominal GI/Abdominal exam: Present: soft, normal bowel sounds. Absent: distended, tenderness, guarding - Extremities Exam Extremities exam: Present: normal inspection - Back Exam Back exam: Present: normal inspection - Neurological Exam Neurological exam: Present: alert, oriented X3 - Psychiatric Psychiatric exam: Present: normal affect, normal mood - Skin Skin exam: Present: warm, dry, intact, normal color. Absent: rash ED Course Vital Signs 06/27/21 21:45 Temperature 98.3 F Pulse Rate 93 H Respiratory 16 Rate Blood Pressure 133/95 O2 Sat by Pulse 99 Oximetry ED Medical Decision Making - Lab Data Result diagrams: 06/27/21 21:52 06/27/21 21:52 Laboratory Tests 06/27/21 06/27/21 06/27/21 21:52 21:52 21:52 WBC 6.8 RBC 4.61 Hgb 14.2 Hct 40.3 MCV 88 MCH 31 MCHC 35 H RDW 12.9 L Plt Count 314 Lymph % (Auto) 8.1 L [place] % (Auto) 6.4 Eos % (Auto) 0.3 Baso % (Auto) 0.5 Lymph # (Auto) 0.6 L [place] # (Auto) 0.4 Eos # (Auto) 0.0 Baso # (Auto) 0.0 Seg Neutrophils % 84.7 H Seg Neutrophils # 5.8 Sodium 136 L Potassium 4.0 Chloride 99.1 Carbon Dioxide 23 Anion Gap 18 BUN 11 Creatinine 0.5 L Estimated GFR > 60 BUN/Creatinine Ratio 22 Glucose 95 Calcium 9.4 Total Bilirubin 0.50 AST 17 ALT 15 Alkaline Phosphatase 69 Total Protein 8.1 Albumin 4.5 Albumin/Globulin Ratio 1.3 Lipase 24 HCG, Qual Negative Urine Color Urine Turbidity Urine pH Ur Specific [place] Urine Protein Urine Glucose (UA) Urine Ketones Urine Blood Urine Nitrite Urine Bilirubin Urine Urobilinogen Ur Leukocyte Esterase Urine WBC (Auto) Urine RBC (Auto) U Epithel Cells (Auto) Urine Mucus 06/27/21 22:05 WBC RBC Hgb Hct MCV MCH MCHC RDW Plt Count Lymph % (Auto) [place] % (Auto) Eos % (Auto) Baso % (Auto) Lymph # (Auto) [place] # (Auto) Eos # (Auto) Baso # (Auto) Seg Neutrophils % Seg Neutrophils # Sodium Potassium Chloride Carbon Dioxide Anion Gap BUN Creatinine Estimated GFR BUN/Creatinine Ratio Glucose Calcium Total Bilirubin AST ALT Alkaline Phosphatase Total Protein Albumin Albumin/Globulin Ratio Lipase HCG, Qual Urine Color Yellow Urine Turbidity Slightly-cloudy Urine pH 6.0 Ur Specific [place] 1.023 Urine Protein 30 mg/dl Urine Glucose (UA) Neg Urine Ketones 20 Urine Blood Neg Urine Nitrite Neg Urine Bilirubin Neg Urine Urobilinogen < 2.0 Ur Leukocyte Esterase Neg Urine WBC (Auto) 6.0 Urine RBC (Auto) 4.0 U Epithel Cells (Auto) 19.0 H Urine Mucus 3+ - Medical Decision Making 35-year-old female presents to the emergency room stated that about 1:00 today she started having abdominal pains nausea vomiting dizziness and headache. Patient states that all her symptoms have resolved now. 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 Patient does not have a primary care provider. She does not take medications on a daily basis. Patient is not vaccinated. She has not been Covid tested recently. She has no known drug allergies. She denies any urinary symptoms. Labs are all stable. Waiting on urinalysis Urinalysis is negative for any infection. Critical care attestation.: If time is entered above; I have spent that time in minutes in the direct care of this critically ill patient, excluding procedure time. ED Disposition Clinical Impression: Abdominal pain, Nausea and vomiting, Illicit drug use Disposition: [id number] TO HOME OR SELFCARE Is pt being admited?: No Does the pt Need Aspirin: No Condition: Stable Instructions: Nausea and Vomiting, Adult, [id number], Abdominal Pain, Adult, [id number], Abdominal Pain (ED) Additional Instructions: Labs are stable. Urinalysis is stable. Increase your fluid intake. Follow-up with your primary care provider. Referrals: EMERALD EDWARD MD [Staff Physician] - 3-5 Days Forms: Work/School Release Form(ED)
[2021-06-27 22:58] LABS: Bilirubin,Urine NEG (Negative); Blood,Urine NEG (Negative); Color,Urine Yellow (Yellow); Mucus,Urine 3+ /HPF; Urobilinogen,Urine < 2.0 mg/dL (<2.0)
== END 2021-06-27 23:40 | disposition home or self-care (01) ==
LOC: ED 18:38
DX: F19.90 Other psychoactive substance use, unspecified, uncomplicated (principal); R10.9 Unspecified abdominal pain; R11.2 Nausea with vomiting, unspecified; Z79.899 Other long term (current) drug therapy
CPT/HCPCS: 36415; 80053; 81001; 83690; 84703; 85025